=== PATIENT | male | born 1955 | race Caucasian/White ===

== ENCOUNTER 2018-05-25 11:07 | Outpatient (REF) | payer BC, SELFPAY ==
[2018-05-25 14:29] LABS: Anion Gap 9.7 mmol/L (3-11); BUN 20 mg/dL (7-18); CO2 27.3 mmol/L (21.0-32.0); CREATININE 0.94 mg/dL (0.70-1.30); Calcium 9.4 mg/dL (8.5-10.1); Chloride 104 mmol/L (98-107); Cholesterol 230 mg/dL (50-200); Glucose 108 mg/dL (70-100); HDL Cholesterol 60 mg/dL (40-60); LDL CHOLESTEROL 148 mg/dL (<100); Potassium 4.4 mmol/L (3.5-5.1); Sodium 141 mmol/L (136-145); Triglyceride 120 mg/dL (30-150)
[2018-05-28 13:48] LABS: Hepatitis C Ab w Rflx HCV PCR Negative (NEGAT)
== END 2018-05-25 11:27 ==
LOC: NCHCN 11:07
PROVIDERS: PCP Internal Medicine; Visit Provider Internal Medicine
DX: R20.2 Paresthesia of skin (principal); Z00.00 Encounter for general adult medical examination without abnormal findings; Z13.220 Encounter for screening for lipoid disorders; Z13.228 Encounter for screening for other metabolic disorders; Z11.59 Encounter for screening for other viral diseases
CPT/HCPCS: 80048; 80061; 83721; 86803

== ENCOUNTER 2018-06-01 00:47 | Outpatient (CLI) | payer BC, SELFPAY ==
[2018-06-01] MEDS: Gadoterate meglumine 20 ML VIAL 16 ML IVP (14:42)
--- NOTE | 2018-06-01 14:57 | DI.MRI_ITS ---
SYMPTOMS/DIAGNOSIS: PARESTHESIAS, R20.2, NUMBNESS, TINGLING LT ARM MRI OF THE BRAIN: Pre and post contrast examination was performed. There are no priors for comparison. There is normal signal in the brain parenchyma. There is a normal reeves/white matter differentiation. The ventricles are intact. The basilar cisterns are patent. No acute midline shift or mass effect is identified. The diffusion weighted images have a normal appearance. No intracranial hemorrhage is seen. Following contrast administration no enhancing masses are appreciated. The visualized paranasal sinuses are clear. The visualized orbits and retro-orbital soft tissues are unremarkable. The pituitary has a normal appearance. There is a normal flow void in the [place]. IMPRESSION: Negative MRI of the brain.
== END 2018-06-01 01:07 ==
PROVIDERS: PCP Internal Medicine; Visit Provider Internal Medicine
DX: R20.2 Paresthesia of skin (principal)
CPT/HCPCS: 70553

== ENCOUNTER 2018-06-12 00:27 | Outpatient (CLI) | payer BC, SELFPAY ==
--- NOTE | 2018-06-12 11:40 | DI.MRI_ITS ---
SYMPTOMS/DIAGNOSIS: PARESTHESIAS, R20.2, LEFT ARM AND FOOT NUMB, ? MS VERSUS TUMOR VERSUS PINCHED NERVE MRI OF THE CERVICAL SPINE: Routine noncontrast examination was performed. There are no priors for comparison. There is normal signal in the spinal cord. No evidence of tonsillar ectopia is seen. At C7-T1, there is no focal disc herniation, central spinal canal or neural foraminal stenosis. At C6-C7, there is mild prominence of the osteophyte-disc complex, but no focal disc herniation or central spinal canal stenosis. No significant neural foraminal stenosis is present. At C5-C6, there is mild disc desiccation. No central spinal canal stenosis is seen. No significant neural foraminal stenosis is present. At C4-C5, there is no focal disc herniation, central spinal canal or neural foraminal stenosis present. At C3-C4, there is no central spinal canal stenosis seen. There are hypertrophic changes of the uncovertebral joints and facets on the right, causing moderate narrowing of the neural foramen. There is no significant left neural foraminal stenosis. At C2-C3, there is no focal disc herniation or central spinal canal stenosis. There are mild degenerative changes seen at the left uncovertebral joint, causing mild narrowing of the neural foramen. The right neural foramen is widely patent. Apart from mild degenerative endplate signal changes, there is normal signal in the bone marrow. Note is made of small hemangiomata or fatty rests in C6 and the T1 vertebral bodies. IMPRESSION: 1. Multilevel degenerative changes in the cervical spine resulting in neural foraminal stenosis as described above. 2. Normal signal in the spinal cord.
== END 2018-06-12 00:47 ==
PROVIDERS: PCP Internal Medicine; Visit Provider Internal Medicine
DX: R20.2 Paresthesia of skin (principal); M25.78 Osteophyte, vertebrae; M48.02 Spinal stenosis, cervical region
CPT/HCPCS: 72141

== ENCOUNTER 2018-09-17 13:27 | Outpatient (CLI) | payer BC, SELFPAY ==
--- NOTE | 2018-09-17 13:10 | DI.RAD_ITS ---
SYMPTOM/DIAGNOSIS: INJURY, PAIN RIGHT SHOULDER: Three views. No acute fracture or dislocation is seen. The glenohumeral joint and acromioclavicular joint are both well maintained. The soft tissues are unremarkable. IMPRESSION: No acute fracture or dislocation.
== END 2018-09-17 13:47 ==
PROVIDERS: PCP Internal Medicine; Visit Provider Physician Assistant
DX: M25.511 Pain in right shoulder (principal); S49.91XA Unspecified injury of right shoulder and upper arm, initial encounter
CPT/HCPCS: 73030

== ENCOUNTER 2019-01-24 16:18 | Outpatient (REF) | payer BC, SELFPAY ==
[2019-01-24 22:00] LABS: Abs Immature Grans 0.03 k/cumm (0.0-0.09); Absolute Basophil Count 0.01 k/cumm (0.0-0.2); Absolute Eosinophil Count 0.11 k/cumm (0.0-0.7); Absolute Lymphocyte Count 2.47 k/cumm (1.2-3.4); Absolute Monocyte Count 0.55 k/cumm (0.11-0.7); Absolute Neutrophil Count 3.94 k/cumm (1.2-6.7); Basophils % 0.1; Eosinophils % 1.5; HCT 42.6 % (40.0-50.0); HGB 14.5 g/dL (13.5-17.5); Immature Grans % 0.4; Lymphocytes % 34.7; Mean Corpuscular Hemoglobin 32.2 pg (27.0-33.0); Mean Corpuscular Volume 94.5 fL (80-95); Mean Platelet Volume 12.4 fL (8.0-11.0); Monocytes % 7.7; Neutrophils % 55.6; Platelet Count 212 x1000/uL (130-400); RBC 4.51 m/cumm (4.50-6.00); RBC Distribution Width 12.7 % (11.8-14.1); White Blood Cell Count 7.11 k/cumm (4.4-10.8)
[2019-01-24 22:19] LABS: C-Reactive Protein 0.12 mg/dL (0.0-0.3)
[2019-01-24 22:45] LABS: ESR 5 MM/HR (1-20)
== END 2019-01-24 16:38 ==
LOC: NCHCN 16:18
PROVIDERS: PCP Internal Medicine; Visit Provider Internal Medicine
DX: R31.9 Hematuria, unspecified (principal); E27.8 Other specified disorders of adrenal gland; M25.50 Pain in unspecified joint
CPT/HCPCS: 85652; 85025; 86140

== ENCOUNTER 2019-02-08 01:27 | Outpatient (CLI) | payer BC, SELFPAY ==
--- NOTE | 2019-02-08 09:45 | DI.CT_ITS ---
SYMPTOM/DIAGNOSIS: HEMATURIA, R31.[address]: Renal colic CT was performed according to protocol. Comparison is made with 05/22/17. Lack of IV contrast does limit evaluation of the abdominal and pelvic organs. The visualized lung bases are clear. The patient is status post cholecystectomy. No biliary ductal dilatation is seen. The unenhanced visualized portions of the liver, spleen and pancreas are unremarkable as are the adrenal glands. The kidneys show no evidence of nephrolithiasis. There is a 4 mm. stone seen in the distal left ureter proximal to the ureterovesicular junction causing mild hydronephrosis. The urinary bladder is intact. The reproductive organs are unremarkable. There is diverticulosis of the colon but no evidence of acute diverticulitis. No findings to suggest bowel obstruction or inflammation. There is no evidence of an acute appendicitis. The abdominal aorta is of normal caliber. No significant abdominal or pelvic adenopathy, ascites or pneumoperitoneum is present. The patient has a right total hip replacement which causes some artifact in the pelvis. Degenerative changes are seen in the spine. IMPRESSION: 4 mm. distal left ureteral stone causing mild hydronephrosis.
== END 2019-02-08 01:47 ==
PROVIDERS: PCP Internal Medicine; Visit Provider Internal Medicine
DX: R31.9 Hematuria, unspecified (principal); Z90.49 Acquired absence of other specified parts of digestive tract; N20.0 Calculus of kidney; Z96.641 Presence of right artificial hip joint; N13.30 Unspecified hydronephrosis
CPT/HCPCS: 74176

== ENCOUNTER 2019-02-18 11:34 | Outpatient (REF) | payer BC, SELFPAY ==
[2019-02-18 13:55] LABS: Bilirubin Negative (Negative); Blood Large (Negative); Clarity Clear (Clear); Glucose Negative (Negative); Ketones Negative (Negative); Leukocyte Esterase Trace (Negative); Nitrite Negative (Negative); Urobilinogen 0.2 EU/dL (Up TO 0.2); pH 6.5 (5-8)
[2019-02-18 14:07] LABS: Bacteria Few HPF (Negative); Casts Negative LPF (Negative); Crystals Negative HPF (Negative); Epithelial Cells Few HPF (Negative); Mucus Negative (Negative)
[2019-02-18 14:08] LABS: C & S Indicated? Yes
== END 2019-02-18 11:54 ==
LOC: NCHCO 11:34
PROVIDERS: PCP Internal Medicine; Visit Provider Internal Medicine
DX: R30.0 Dysuria (principal)
CPT/HCPCS: 81003; 81015; 87086

== ENCOUNTER 2019-03-26 01:09 | Outpatient (CLI) | payer BC, SELFPAY ==
--- NOTE | 2019-03-26 15:38 | DI.US_ITS ---
SYMPTOM/DIAGNOSIS: BPH WITH URINARY OBSTRUCTION, N40.1 RENAL ULTRASOUND: Routine examination. Comparison CT scan is 02/08/19. The right kidney measures 11.1 cm. long. No renal masses or obstruction is seen. There is an echogenic focus seen in the mid pole of the right kidney. No significant shadowing is seen. This may represent a vascular calcification or possible non obstructing stone. There is normal blood flow to the right kidney. The left kidney measures 11.5 cm. long. There is mild prominence of the left collecting system, unchanged compared to the CT scan from 02/08/19. No solid renal mass or calculus is seen. The prevoid urinary bladder volume is 86 cc's. Both ureteral jets were seen. No intraluminal mass is present. Postvoid urinary bladder volume is 7 cc's. The prostate gland is enlarged measuring 75 cc's. IMPRESSION: 1. Mild prominence of the left renal collecting system, unchanged compared to the CT from 02/08/19. 2. Tiny vascular calcification versus small non obstructing stone in the right kidney. 3. Prostatic enlargement.
== END 2019-03-26 01:29 ==
PROVIDERS: PCP Internal Medicine; Visit Provider Urology
DX: N39.0 Urinary tract infection, site not specified (principal); N40.1 Benign prostatic hyperplasia with lower urinary tract symptoms; N28.89 Other specified disorders of kidney and ureter
CPT/HCPCS: 76770

== ENCOUNTER 2019-04-10 00:45 | Outpatient (CLI) | payer BC, SELFPAY ==
--- NOTE | 2019-04-10 09:12 | DI.CT_ITS ---
SYMPTOM/DIAGNOSIS: CALCULUS OF KIDNEY, N20.[address]: Comparison is made with 02/08/19. There is increased left hydronephrosis compared with the previous exam, now moderate. The ureter is again dilated. The stone now lies in the left ureterovesical junction. The stone measures 8 by 6 mm. No additional urinary tract calculi are seen. The prostate is enlarged. There is mild bladder wall thickening. There is a right hip prosthesis creating artifact in the pelvis. There is sigmoid diverticulosis without evidence of diverticulitis. The lung bases are clear. The heart size is normal. The patient is status post cholecystectomy. The liver, spleen, pancreas and adrenals are unremarkable. IMPRESSION: Increasing left hydronephrosis, now moderate secondary to an 8 mm. stone now located at the ureterovesical junction.
== END 2019-04-10 01:05 ==
PROVIDERS: PCP Internal Medicine; Visit Provider Urology
DX: N20.0 Calculus of kidney (principal); N13.30 Unspecified hydronephrosis; Z90.49 Acquired absence of other specified parts of digestive tract
CPT/HCPCS: 74176

== ENCOUNTER 2019-05-13 00:55 | Outpatient (CLI) | payer BC, SELFPAY ==
--- NOTE | 2019-05-13 15:29 | DI.US_ITS ---
EXAM: US RENAL CLINICAL HISTORY: CALCIUMUROLITHIASIS, N20.9 TECHNIQUE: Ultrasound performed using standard protocol. COMPARISON: US renal from 03/26/2019 FINDINGS: The kidneys are normal in size and shape. No evidence of hydronephrosis, nephrolithiasis, or renal m ass. Urinary bladder is unremarkable in appearance. Pre and postvoid urinary bladder volume measure ments are 490 cc and 87 cc respectively. IMPRESSION: Unremarkable examination except for increased post void volume of urinary bladder.
== END 2019-05-13 01:15 ==
PROVIDERS: PCP Internal Medicine; Visit Provider Urology
DX: N20.9 Urinary calculus, unspecified (principal); R39.89 Other symptoms and signs involving the genitourinary system
CPT/HCPCS: 76770

== ENCOUNTER 2019-06-03 01:27 | Outpatient (CLI) | payer BC, SELFPAY ==
--- NOTE | 2019-06-03 09:56 | DI.MRI_ITS ---
EXAM: MR UPPER JOINT RT WO CLINICAL HISTORY: persistent R shoulder pain and weakness, M25.511,INJURY SHOVELING SNOW TECHNIQUE: Multiplanar multisequence MRI was performed. COMPARISON: XR shoulder RT complete 2+V from 09/17/2018 FINDINGS: There are mild degenerative changes of the AC joint. There is a minimal amount of fluid in the sub acromial subdeltoid bursa. There is a small amount of fluid in the subcoracoid bursa and a small am ount of fluid within the glenohumeral joint. There is a partial tear of the anterior aspect of the s upraspinatus tendon distally. There is no significant muscle atrophy. There is mild edema and thick ening in the distal muscle and tendon. The subscapularis and teres minor tendons appear intact. The long head of the biceps tendon is not well seen on any sequence. There is an apparent tear of the i nferior and anterior aspects of the glenoid labrum. IMPRESSION: Partial tear of the supraspinatus tendon anteriorly. Infraspinatus tendinosis. Tears of the anterior and inferior glenoid labrum. The biceps tendon is not well seen and may be completely or partially torn.
== END 2019-06-03 01:47 ==
PROVIDERS: PCP Internal Medicine; Visit Provider Student in an Organized Health Care Education/Training Program
DX: M25.511 Pain in right shoulder (principal); M25.811 Other specified joint disorders, right shoulder; M75.81 Other shoulder lesions, right shoulder; M75.101 Unspecified rotator cuff tear or rupture of right shoulder, not specified as traumatic
CPT/HCPCS: 73221

== ENCOUNTER 2020-08-31 09:40 | Outpatient (CLI) | payer MEDICARE, BC, SELFPAY ==
--- NOTE | 2020-08-31 08:15 | DI.RAD_ITS ---
EXAM: XR HAND LT COMPLETE CLINICAL HISTORY: left ring finger mass. TECHNIQUE: 2D digital imaging was performed. COMPARISON: CR ARTHITIS SERIES-KAYCE HAND WRIST from 04/07/2011 FINDINGS: BONES: There is a mildly displaced fracture of the posterior aspect of the base of the distal phalanx of the left ring finger. No other fracture or dislocation is seen. The acuity of this fracture is indeterminate. Please correlate with the patient's clinical history. No bony destructive lesion is seen. JOINTS: Since the prior examination from 04/07/2011 there has been significant progression of the arthr itic changes of the left hand. 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 Th ere is involvement of the 1st CMC joint, the MCP joints and the interphalangeal joints of the fingers . SOFT TISSUE: There is diffuse soft tissue swelling of the hands. No radiopaque foreign bodies or eric cifications are seen in the soft tissues. There is focal soft tissue swelling at the lateral and eren araseli aspect of the middle phalanx of the left ring finger. No associated bony mass is seen. IMPRESSION: 1. Mildly displaced fracture involving the posterior aspect of the base of the distal phalanx of the left ring finger. 2. Focal soft tissue swelling and adjacent to the middle phalanx of the left ring finger. No underly ing osseous abnormalities identified. This may represent a soft tissue mass. This may also be relat ed to the avulsed fracture of the adjacent distal phalanx. MRI may be considered for further evaluat ion. 3. Significant progression of the arthritic changes of the left hand since 2010. There has been inte rval ankylosis of the PIP joint of the left index finger. DATA REPOSITORY: RADIATION DOSE DELIVERED:
== END 2020-08-31 10:00 ==
PROVIDERS: PCP Internal Medicine; Referring Provider Internal Medicine; Visit Provider Student in an Organized Health Care Education/Training Program
DX: S62.635A Displaced fracture of distal phalanx of left ring finger, initial encounter for closed fracture (principal); M24.642 Ankylosis, left hand; M79.89 Other specified soft tissue disorders; R22.30 Localized swelling, mass and lump, unspecified upper limb; M19.042 Primary osteoarthritis, left hand; M67.442 Ganglion, left hand
CPT/HCPCS: 99213; 73130

== ENCOUNTER 2020-11-09 11:25 | Outpatient (REF) | payer MEDICARE, BC, SELFPAY ==
[2020-11-10 12:03] LABS: COVID-19 RT-PCR UVMMC Result Negative (Negative)
== END 2020-11-09 11:26 | disposition home or self-care (01) ==
LOC: NCHCN 11:25
PROVIDERS: PCP Internal Medicine; Visit Provider Internal Medicine
DX: Z20.822 Contact with and (suspected) exposure to COVID-19 (principal)
CPT/HCPCS: U0003; U0005

== ENCOUNTER 2021-06-04 16:34 | Emergency (ER) | payer MEDICARE, BC, SELFPAY ==
--- NOTE | 2021-06-04 16:30 | RT.EKG_ITS ---
APPROVED REPORT Exam: Resting ECG Reason for Exam: short of breath Patient Location: E HR:66 bpm ECG Measurements Heart Rate 66 AXIS FL 145 P 40 QRSd 89 QRS 11 QT 425 T 31 QTc 447 Conclusion Sinus rhythm...normal P axis, V-rate 60- 99
[2021-06-04 16:38] VITALS: BP 153/118; PULSE 69; RESP 18; TEMP 36.4; O2SAT 100
[2021-06-04 16:41] VITALS: RESP 22
--- NOTE | 2021-06-04 16:50 | ED.GENADUL_ITS ---
Discharge Plan Disposition Patient Disposition: AGAINST MEDICAL ADVICE Condition: Stable Discharge Details Clinical Impression: Shortness of breath, Anxiety Primary Care Provider: Skip Reilly ED Provider: Lane Grewal Home Meds and New Rx's Prescriptions: Continued tamsulosin [Flomax] 0.4 mg capsule 0.4 mg PO DAILY RF: 0 CBD 30 mg PO RF: 0 METAMUCIL 283 GM powder 2 tbs PO DAILY RF: 0 ibuprofen 200 MG capsule 600 mg PO Q8H PRN RF: 0 naproxen 500 mg tablet 500 mg PO DAILY Qty: 90 RF: 3 Discharge Instructions Instructions: Anxiety (ED) Additional Instructions: follow up with your primary care provider this week your blood work showed no concerning findings and you did not want to stay for a repeat blood test if you feel more ill, have worsening shortness of breath or pain return to the emergency department Medical Decision Making 65 yo male with hx of anxiety who comes in with complaint of shortness of breath and feeling anxious. He states this started acutely around 330pm while on a small plane and was a bumpy ride causing him to feel anxious. He denies chest pain, fevers, chills. He does appear anxious on exam. He is hyperventilating and is restless. He has stable vitals, clear lungs, normal heart sounds, no leg swelling or jvd. I do suspect panic attack. Will obtain ecg and evaluate for nstemi, anemia and electrolyte abnormalities and treat his anxiety with ativan and reassess. No hypoxia or tachycardia so doubt PE. labs unremarkable. Remains stable and feels much better. I discussed with pt and recommended repeat troponin and ecg. He has capacity to make his own decisions and understands the risks of leaving if he did have an nstemi including and permanent disability and is willing to accept these risks. He is leaving against my medical advise. He will follow up with his pcp and understands he can return at any time if he changes his mind Differential Diagnosis Differential Diagnosis: anxiety, anemia, nstemi Lab Data Lab results reviewed: Yes I reviewed the patient's lab results. ECG Data Attestation: I personally reviewed and interpreted this ECG (s) as follows: Prior ECG tracings: not available for review Interpretation: sinus rhythm, rate of 66, no acute st t wave ischemic findings HPI General Mode of arrival: wheelchair . Date/Time Provider Initiated Documentation: 06/04/21 16:35 . Limitations to Documentation: no limitations . Information obtained by: patient . History of Present Illness 65 year old M presents to the emergency department with the chief complaint of anxious, described as moderate, Patient started experiencing this hour(s) (1) and it has been constant. No relieving factors improve symptom(s), No exacerbating factors reported . Patient notes shortness of breath. Patient did receive the following treatments prior to arrival, none Related Data Home Medications Medication Instructions Recorded Confirmed Metamucil 2 tbs PO DAILY 10/23/12 07/29/19 ibuprofen 600 mg PO Q8H PRN 02/06/15 06/04/21 tamsulosin 0.4 mg capsule 0.4 mg PO DAILY 05/24/19 06/04/21 CBD PO 07/29/19 07/29/19 naproxen 500 mg tablet 500 mg PO DAILY #90 tab 12/18/20 06/04/21 Previous Rx's Medication Instructions Recorded naproxen 500 mg tablet 500 mg PO DAILY #90 tab 12/18/20 Allergies Allergy/AdvReac Type Severity Reaction Status Date / Time No Known Allergies Allergy Verified 06/04/21 16:41 General Stated Complaint: Anxiety DESEAN: 3 Review of Systems All systems reviewed & are unremarkable except as noted in HPI and below Constitutional Constitutional: Denies chills, Denies fever(s) and Denies weakness ENT Ears, Nose, Mouth, and Throat: Denies change in voice Respiratory Respiratory: Denies cough Gastrointestinal Gastrointestinal: Denies abdominal pain, Denies nausea and Denies vomiting Neurologic Neurologic: Denies weakness [facility] Medical History (Updated 06/04/21 @ 18:[address]rewal MD) Arthritis Arthritis of left hand Ganglion cyst of finger of left hand Left ring finger Impaired wound healing Osteoarthritis Surgical History Appendectomy (~1989) Cholecystectomy (~2006) Total replacement of hip (~2009) RIGHT Vasectomy (~1987) Social History Smoking/Tobacco Use Status: Former Tobacco Use Smoking risk assessment performed?: Yes Alcohol Intake: current Alcohol Intake frequency: 0-2 drinks per day Drug use: Daily Substance use type: marijuana Do you feel safe at home: Yes Do you feel safe in your relationship?: Yes Exam Const General: no acute distress Orientation: alert HENMT Head: normal to inspection Ears: external ears normal General nose exam: external nose normal Mouth: moist mucous membranes Eyes General: appearance normal, both eyes and all related structures Neck Neck: normal visual inspection Resp Effort & Inspection: normal respiratory effort and able to speak in complete sentences Cardio Rate: regular rate GI Palpation: soft and nontender Skin General skin exam: no rashes or lesions noted Neuro General: patient alert and patient oriented x3 Extrem General: normal to inspection Psych Mental Status: mental status grossly normal Course Vital Signs Vital signs: Vital Signs Temperature 36.4 C L 06/04/21 16:38 Pulse 69 06/04/21 16:38 Respiratory Rate 18 06/04/21 16:38 Blood Pressure 153/118 H 06/04/21 16:38 Pulse Oximetry 100 06/04/21 16:38 Temperature 36.4 C L 06/04/21 16:38 Temperature Source Temporal Artery Scan 06/04/21 16:38 Pulse 69 06/04/21 16:38 Respiratory Rate 22 06/04/21 16:41 Respiratory Effort 06/04/21 16:41 Respiratory Depth Normal 06/04/21 16:41 Respiratory Pattern Normal 06/04/21 16:41 Blood Pressure 153/118 H 06/04/21 16:38 Pulse Oximetry 100 06/04/21 16:38 Oxygen Delivery Method Room Air 06/04/21 16:38 Oxygen Flow Rate 0 06/04/21 16:38 Pain Level 7 06/04/21 16:38
[2021-06-04 16:58] LABS: Source Nasal/Nares
[2021-06-04] MEDS: LORazepam 2 MG/ML VIAL 1 MG IVP (17:01)
[2021-06-04 17:04] LABS: Abs Immature Grans 0.05 10^3/uL (0.0-0.06); Absolute Basophil Count 0.04 10^3/uL (0.0-0.2); Absolute Eosinophil Count 0.07 10^3/uL (0.0-0.7); Absolute Lymphocyte Count 2.51 10^3/uL (1.2-3.4); Absolute Monocyte Count 0.55 10^3/uL (0.1-0.8); Absolute Neutrophil Count 4.48 10^3/uL (1.2-6.7); Basophils % 0.5; Eosinophils % 0.9; HCT 48.5 % (40.0-50.0); HGB 16.9 g/dL (13.5-17.5); Immature Grans % 0.6; Lymphocytes % 32.6; MCHC 34.8 % (32.0-36.0); MCV 91.9 fL (80-95); MPV 10.6 fL (8.0-11.0); Monocytes % 7.1; Neutrophils % 58.3; Nucleated RBC 0 %; Platelet Count 220 10^3/uL (130-400); RBC 5.28 10^6/uL (4.36-5.78); RDW-SD 40.9 fL
[2021-06-04 17:18] LABS: pCO2 (Venous) 27 mmHg (41-51)
[2021-06-04 17:19] LABS: BE (Venous) 5 mmol/L (-2-3); HCO3 (Venous) 26 mmol/L (23-28); TCO2 (Venous) 27 mmol/l (24-29); pO2 (Venous) 28 mmHg
[2021-06-04 17:20] LABS: O2 Sat (Venous) 66 %
[2021-06-04 17:56] LABS: COVID-19 PCR Negative (Negative)
[2021-06-04 18:08] LABS: ALT 36 U/L (16-63); AST 15 U/L (15-37); Albumin 4.3 g/dL (3.4-5.0); Alkaline Phosphatase 59 U/L (46-116); Anion Gap 11.6 mmol/L (3-11); BUN 15 mg/dL (7-18); Bilirubin, Total 0.7 mg/dL (0.2-1.0); CO2 25.4 mmol/L (21.0-32.0); CREATININE 0.8 mg/dL (0.70-1.30); Chloride 101 mmol/L (98-107); Glucose 122 mg/dL (74-106); Potassium 3.2 mmol/L (3.5-5.1); Sodium 138 mmol/L (136-145); Total Protein 7.4 g/dL (6.4-8.2)
[2021-06-04 18:18] LABS: NT-proBNP 114 pg/mL (<300); TSH (W/Ref FT4) 2.86 uIU/mL (0.36-3.74)
[2021-06-04 18:22] LABS: Troponin I < 0.05 ng/mL (<0.06)
[2021-06-04 19:18] VITALS: BP 140/68; PULSE 69; RESP 22; TEMP 36.4; O2SAT 100
== END 2021-06-04 19:19 | disposition left against medical advice (07) ==
PROVIDERS: Emergency Provider Emergency Medicine; PCP Internal Medicine
DX: F41.9 Anxiety disorder, unspecified (principal); R06.02 Shortness of breath; Z53.29 Procedure and treatment not carried out because of patient's decision for other reasons
CPT/HCPCS: 80053; 82805; 87635; 93005; 96374; 99284; 83735; 83880; 84443; 84484; 85025; 93010; 99283; J2060

== ENCOUNTER 2021-10-04 10:04 | Outpatient (REF) | payer MEDICARE, SELFPAY ==
[2021-10-04 16:07] LABS: ALT 38 U/L (16-63); AST 15 U/L (15-37); Albumin 4.4 g/dL (3.4-5.0); Alkaline Phosphatase 66 U/L (46-116); Anion Gap 10.6 mmol/L (3-11); BUN 14 mg/dL (7-18); Bilirubin, Total 0.4 mg/dL (0.2-1.0); CO2 25.4 mmol/L (21.0-32.0); CREATININE 0.9 mg/dL (0.70-1.30); Calcium 9.1 mg/dL (8.5-10.1); Calculated LDL 146 mg/dL (<100); Chloride 102 mmol/L (98-107); Cholesterol 222 mg/dL (<200); Glucose 104 mg/dL (74-106); HDL Cholesterol 58 mg/dL (40-60); Potassium 4.5 mmol/L (3.5-5.1); Sodium 138 mmol/L (136-145); Total Protein 7.4 g/dL (6.4-8.2); Triglyceride 90 mg/dL (<150)
[2021-10-04 22:59] LABS: PSA, Screening 5.4 ng/mL (0.0-4.5)
== END 2021-10-04 10:05 | disposition home or self-care (01) ==
LOC: NCHCN 10:04
PROVIDERS: PCP Internal Medicine; Visit Provider Family Medicine
DX: Z00.00 Encounter for general adult medical examination without abnormal findings (principal); F41.9 Anxiety disorder, unspecified; Z12.5 Encounter for screening for malignant neoplasm of prostate
CPT/HCPCS: 80053; 80061; 84153

== ENCOUNTER 2023-01-24 09:38 | Outpatient (REF) | payer MEDICARE, SELFPAY ==
[2023-01-24 22:10] LABS: Anion Gap 10.5 mmol/L (3-11); BUN 12 mg/dL (7-18); CO2 24.5 mmol/L (21.0-32.0); CREATININE 0.9 mg/dL (0.70-1.30); Calcium 9.1 mg/dL (8.5-10.1); Chloride 102 mmol/L (98-107); Estimated GFR 93.61 (mL/min/1.73m2); Glucose 106 mg/dL (74-106); Potassium 4.2 mmol/L (3.5-5.1); Sodium 137 mmol/L (136-145)
[2023-01-25 18:49] LABS: PSA, Screening 5.9 ng/mL (<=4.5)
== END 2023-01-24 09:39 | disposition home or self-care (01) ==
LOC: NCHCN 09:38
PROVIDERS: PCP Internal Medicine; Visit Provider Internal Medicine
DX: Z12.5 Encounter for screening for malignant neoplasm of prostate (principal); M19.041 Primary osteoarthritis, right hand; F41.8 Other specified anxiety disorders; N40.1 Benign prostatic hyperplasia with lower urinary tract symptoms
CPT/HCPCS: 80048; 84153

== ENCOUNTER → 2023-05-08 02:09 | Outpatient (CLI) | payer MEDICARE, SELFPAY ==
--- NOTE | 2023-05-08 07:15 | DI.RAD_ITS ---
Exam(s) XR ANKLE LT COMPLETE EXAM: XR ANKLE LT COMPLETE CLINICAL HISTORY: Pain in left foot,ankle,m25.572 TECHNIQUE: 2D digital imaging was performed. Three views. COMPARISON: No exams were available for comparison FINDINGS: BONES: No acute fracture is present. No bony destructive lesion is seen. Spurring at tip of medial malleolus. JOINTS:The ankle mortise is normally aligned. Tibiotalar joint space is maintained severe degenerat deepak changes tarsal metatarsal joints. SOFT TISSUE: Normal. IMPRESSION: Severe degenerative changes tarsal metatarsal joints. DATA REPOSITORY: RADIATION DOSE DELIVERED:
--- NOTE | 2023-05-08 07:15 | DI.RAD_ITS ---
Exam(s) XR FOOT LT COMPLETE EXAM: XR FOOT LT COMPLETE CLINICAL HISTORY: Pain in left foot,m25.572. TECHNIQUE: 2D digital imaging was performed. Three views. COMPARISON: No exams were available for comparison FINDINGS: BONES: No acute fracture is present. No bony destructive lesion is seen. JOINTS: No dislocation present. Fusion at the distal interphalangeal joint of the 4th toe. 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 Degenerative changes interphalangeal durga ints of the 2nd and 3rd toes. Mild degenerative changes at the 1st MTP joint. Prominent degenerativ e changes at the tarsal metatarsal joints with dorsal spurring. SOFT TISSUE: Normal. IMPRESSION: Degenerative changes are greatest at the tarsal metatarsal joints. DATA REPOSITORY: RADIATION DOSE DELIVERED:
--- NOTE | 2023-05-08 07:15 | DI.RAD_ITS ---
Exam(s) XR FOOT RT COMPLETE EXAM: XR FOOT RT COMPLETE CLINICAL HISTORY: Pain in right foot,m79.671. TECHNIQUE: 2D digital imaging was performed. Three views. COMPARISON: CR XR FOOT LT COMPLETE from 05/08/2023 FINDINGS: BONES: No acute fracture is present. No bony destructive lesion is seen. Tiny enthesophyte at [place] es insertion. JOINTS: No dislocation present. Severe degenerative changes 1st MTP joint. Mild hallux valgus. Deg enerative changes also present of the interphalangeal joints of the toes. 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 Degenerative changes also present the 2nd and 3rd tarsal metatarsal joints. Plantar arch is maintained. SOFT TISSUE: Normal. IMPRESSION: Degenerative changes, greatest at the 1st MTP joint. DATA REPOSITORY: RADIATION DOSE DELIVERED:
== END ==
PROVIDERS: PCP Internal Medicine; Visit Provider Podiatrist
DX: M19.072 Primary osteoarthritis, left ankle and foot; M19.071 Primary osteoarthritis, right ankle and foot
CPT/HCPCS: 73610; 73630

== ENCOUNTER → 2023-05-31 08:42 | Outpatient (BNVA) | payer MEDICARE, SELFPAY | PROVIDERS: PCP Internal Medicine; Referring Provider Internal Medicine; Visit Provider Podiatrist | DX: B35.1 Tinea unguium (principal); M79.671 Pain in right foot; M25.572 Pain in left ankle and joints of left foot; M19.071 Primary osteoarthritis, right ankle and foot; M19.072 Primary osteoarthritis, left ankle and foot; G62.9 Polyneuropathy, unspecified; B07.0 Plantar wart; B35.3 Tinea pedis | CPT/HCPCS: 17110; 99213 ==

== ENCOUNTER → 2023-06-28 08:14 | Outpatient (BNVA) | payer MEDICARE, SELFPAY | PROVIDERS: PCP Internal Medicine; Referring Provider Internal Medicine; Visit Provider Podiatrist | DX: M79.671 Pain in right foot (principal); M25.572 Pain in left ankle and joints of left foot; M19.072 Primary osteoarthritis, left ankle and foot; G62.9 Polyneuropathy, unspecified; B07.0 Plantar wart; B35.3 Tinea pedis | CPT/HCPCS: 17110 ==

== ENCOUNTER → 2023-08-03 07:58 | Outpatient (BNVA) | payer MEDICARE, SELFPAY | PROVIDERS: PCP Internal Medicine; Referring Provider Internal Medicine; Visit Provider Podiatrist | DX: B07.0 Plantar wart (principal); M79.671 Pain in right foot | CPT/HCPCS: 17110 ==

== ENCOUNTER → 2023-08-17 09:14 | Outpatient (BNVA) | payer MEDICARE, SELFPAY | PROVIDERS: PCP Internal Medicine; Referring Provider Internal Medicine; Visit Provider Physical Therapy Assistant | DX: Z12.11 Encounter for screening for malignant neoplasm of colon (principal); Z86.010 Personal history of colon polyps ==

== ENCOUNTER 2023-08-21 10:48 | Day surgery (SDC) | payer MEDICARE, SELFPAY ==
--- NOTE | 2023-08-20 15:05 | W.PM.DSUDISC ---
Date of service: 08/21/23 Time of Service: 13:25 Discharge Plan Disposition Patient Disposition: Home Condition: Good Discharge Details Reason For Visit: screening colonoscop Attending Provider: Andres Salguero Primary Care Provider: Skip Reilly Home Meds and New Rx's Prescriptions: Continued meloxicam 7.5 mg tablet 7.5 mg PO DAILY Lotrimin AF 2 % aerosol,spray 1 spray topical DAILY tamsulosin [Flomax] 0.4 mg capsule 0.4 mg PO DAILY B-complex with vitamin C Capsule 1 cap PO DAILY multivitamin [Multiple Vitamins] Tablet 1 tab PO DAILY omega-3 fatty acids 1,000 mg capsule 1,000 mg PO DAILY citalopram 10 mg tablet 10 mg PO DAILY ketoconazole 2 % cream 1 applic topical DAILY 90 Days Qty: 60 3RF Rx Instructions: Apply to toenails once daily METAMUCIL 283 GM powder 2 tbs PO DAILY ibuprofen 200 MG capsule 600 mg PO Q8H PRN Discontinued polyethylene glycol 3350 17 gram/dose powder 238 g PO ONCE Qty: 238 0RF Rx Instructions: take per colonoscopy instructions bisacodyl [Dulcolax (bisacodyl)] 5 mg tablet,delayed release (DR/EC) 5 mg PO ONCE Qty: 4 0RF Rx Instructions: take per colonoscopy instructions Discharge Instructions Instructions: Diverticulosis (GEN), Colorectal Polyps (GEN), Diverticulosis Diet (GEN) Additional Instructions: Holland, we were able to complete your colonoscopy today without any difficulty. I did find 2 polyps. Both were quite small, and I remove them both without any issues. Incidentally, he also have some diverticulosis. Diverticula are weak spots in the colon wall that typically accumulate as we get older. I have attached a little bit of information here regarding both polyps as well as diverticulosis. It would take a week or 2 for me to get the results of the polyp report, but once I have those, I will be in touch with my recommendations for your next colonoscopy. If you have any questions in the meantime, please do not hesitate to call with any point. 1. If tolerated, consume a soft, low fiber diet for 1-2 days. 2[address] Do not drive, drink alcohol, operate machinery, make critical decisions, or do activities that require coordination or balance for 24 hours. 3. Because air was put into your colon during the procedure, expelling air from your rectum (passing gas or farting) is normal. 4. You may not have a bowel movement for 1-3 days because of the colonoscopy prep. This is normal. 5. Go directly to the emergency room if you notice any of the following: Develop chills (warm to touch), or if you have a thermometer and your temperature is above 101 Difficulty breathing or difficultly swallowing Persistent vomiting Severe abdominal pain, other than gas cramps Severe chest pain Black, tarry stools Any bleeding ? exceeding one tablespoon 6. Call your physician if the site where your intravenous was started becomes red, swollen, painful, and warm to touch. 7. Your physician has reviewed your pre-procedure medications. Please continue to take those medications as previously ordered. You will be given specific information/education regarding any changes to your medications before leaving. Activity:: Activity as Tolerated Diet:: As Tolerated Discharge Orders Discharge Orders: Discharge Order (Routine); Ordered 08/20/23 Ordered By: Andres Salguero DS: Diagnosis Discharge Diagnosis (1) Screen for colon cancer: Status: Acute Asessment and Plan: Follow-up on polypectomy results
--- NOTE | 2023-08-20 15:07 | COLE_ITS ---
Date of service: 08/21/23 Time of Service: 13:29 Colonoscopy Report Date of procedure: 08/21/23 Pre-op diagnosis general: screening colonoscopy Post-op diagnosis procedure note: other (Diverticulosis, rectal polyps) Procedure: Colonoscopy with polypectomy Surgeon: Andres Salguero Anesthesia Type: General:No Airway Estimated blood loss (mL): 5 Pathology: other (0.25 cm rectal polyp, 0.25 cm polyp at 20 cm) Complications: None Disposition: same day Indications: Holland is a 68 year old man who needs his next screening colonoscopy Prep: Miralax/Dulcolax Procedure Start Time: 12:55 Procedure End Time: 13:18 Retraction Time: 18 Findings: Sigmoid diverticulosis, rectal polyp, polyp at 20 cm Procedure Description: After the induction of monitored anesthetic care, and with the patient in left lateral decubitus position, I began by performing an external anorectal exam.? Perineum and skin were normal, as was the anal verge.? There was no evidence of external hemorrhoids.? Next, I performed a digital rectal exam.? I did not appr eciate any abnormal findings.? Next, I advanced a colonoscope into the rectal vault.? I performed retroflexion.? This appeared normal.? Using insufflation, I then advanced the colonoscope beyond the rectal folds and into the sigmoid colon before advancing towards the cecum.? There was some sigmoid diverticulosis.? The scope was noted to be in the cecum by identification of the ileocecal valve and appendiceal orifice.? I then began withdrawing the colonoscope using repeated irrigation as necessary for full evaluation of the colonic mucosa. ?Once the scope was withdrawn to the level of the rectum, great care was taken to examine portions of the rectal folds.? Around 20 cm from the anal verge was a 0.25 cm flat polyp. I removed this with cold forceps. Just a few centimeters below that within the upper portion of the rectal vault was another polyp. This was a little more pedunculated. This was also about 0.25 cm, and I removed this with cold forceps as well. There was minimal bleeding here. Finally, the scope was withdrawn and the patient was brought to the same-day surgery recovery unit as the anesthetic wore off. ?The findings and instructions were shared with the patient prior to discharge. [place] Bowel Prep [place] Bowel Prep Right Colon: 3 Left Colon: 3 Transverse Colon: 3 Total Score: 9
[2023-08-21 11:12] VITALS: BP 125/81; PULSE 79; RESP 16; TEMP 36.5; O2SAT 96
[2023-08-21] MEDS: Lactated Ringers 1,000 ML 80 ML IV (11:16)
--- NOTE | 2023-08-21 11:44 | ANES.PREOP_ITS ---
General Info Date of Service Date Performed: 08/21/23 Height: 5 ft 10 in Weight: 82.554 kg Body Mass Index (BMI): 26.1 Surgical Procedure: Operation Date: 08/21/23 12:50 Proposed Procedure Side Surgeon romeo Salguero MD Meds Allergies and Home Medications Allergies Allergy/AdvReac Type Severity Reaction Status Date / Time No Known Allergies Allergy Verified 08/21/23 10:56 Home Medication Medication Instructions Recorded Metamucil 2 tbs PO DAILY 10/23/12 ibuprofen 200 mg capsule 600 mg PO Q8H PRN 02/06/15 tamsulosin 0.4 mg capsule (Flomax) 0.4 mg PO DAILY 05/24/19 meloxicam 7.5 mg tablet 7.5 mg PO DAILY 05/02/23 miconazole nitrate 2 % topical 1 spray topical DAILY 05/02/23 spray (Lotrimin AF) citalopram 10 mg tablet 10 mg PO DAILY 05/31/23 ketoconazole 2 % topical cream 1 applic topical DAILY 3 months 05/31/23 #60 grams B-complex with vitamin C 1 cap PO DAILY 08/17/23 multivitamin (Multiple Vitamins 1 tab PO DAILY 08/17/23 tablet) omega-3 fatty acids 1,000 mg 1,000 mg PO DAILY 08/17/23 capsule Current Visit Medications: Current Medications Generic Name Dose Route Start Last Admin Trade Name Freq PRN Reason Stop Dose Admin Hyoscyamine Sulfate 0.125 mg 08/20/23 15:08 Hyoscyamine 0.125 Mg Sl/Oral/Chew SL 09/19/23 15:07 DIRECTED PRN Ringer's Solution 1,000 mls @ 80 mls/hr 08/21/23 06:00 08/21/23 11:16 IV 08/21/23 23:59 80 mls/hr INFUSION UJAN Administration IV Miscellaneous Supplies 1 each 08/21/23 06:00 Iv Access IV 08/21/23 23:59 DIRECTED JUAN Ondansetron HCl 4 mg 08/20/23 15:08 Ondansetron 4 Mg/2 Ml Vial IVP 09/19/23 15:07 Q4H PRN PRN Nausea / Vomiting Sodium Chloride 0 ml 08/21/23 06:00 Normal Saline Flush 10 Ml Syr IV 08/21/23 23:59 PRN PRN Sodium Chloride 0 ml 08/21/23 06:00 Normal Saline 10 Ml Vial IJ 08/21/23 23:59 DIRECTED PRN Sterile Water 0 ml 08/21/23 06:00 Water,Injection,Sterile 10 Ml Vial IJ 08/21/23 23:59 DIRECTED PRN PFSH Active Problems Active Problems: Problem Status Onset Code Screen for colon cancer Z12.11 Tinea pedis B35.3 Plantar verruca B07.0 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 Degenerative joint disease, right, foot M19.071 Neuropathy G62.9 Pain in left ankle M25.572 Pain in right foot M79.671 Pain in joint, foot, left M25.572 Anxiety F41.9 Shortness of breath R06.02 Arthritis of left hand M19.042 Lumbar radiculopathy, acute M54.16 Right rotator cuff tear M75.101 Biceps tendinitis of right shoulder M75.21 Right rotator cuff tendonitis M75.81 Medical History Medical History Adrenal nodule Kidney stones BPH w urinary obs/LUTS Osteoarthritis Arthritis Impaired wound healing Surgical History Surgical History Vasectomy (~1987) Total replacement of hip (~2009) RIGHT Cholecystectomy (~2006) Appendectomy (~1989) Tobacco Smoking/Tobacco Use Status: Former Tobacco Use Alcohol Alcohol Intake: current Alcohol intake frequency: 0-2 drinks per day Substance Use Substance use: Rarely Substance use type: marijuana Details: 1 week last dose Vital Signs and Lab Results Vital Signs Most Recent Vital Signs in EMR: Most Recent Vital Signs Temp Pulse Resp BP Pulse Ox 36.5 C 79 16 125/81 96 08/21/23 11:12 08/21/23 11:12 08/21/23 11:12 08/21/23 11:12 08/21/23 11:12 Lab Results Blood Type / Crossmatch: No Data to Display Complete Blood Count: No Data to Display Complete Metabolic Panel: No Data to Display Liver Function Panel: No Data to Display Coagulation Panel: No Data to Display Cardiac Panel: No Data to Display Arterial Blood Gas: No Data to Display Venous Blood Gas: No Data to Display Pancreas Panel: No Data to Display Thyroid Panel: No Data to Display Infectious Disease: No Data to Display Blood Cultures: No Data to Display Toxicology Panel: No Data to Display Imaging and Studies Imaging and Studies Study information below may be from another EMR and interpreted by another provider. Please see original notes in EMR for more complete details. EKG Summary: EKG PATIENT NAME: Holland Garduno UNIT #: [id number] ORDERING PROVIDER: Lane Lyles M.D. PRIMARY CARE PROVIDER: ARLEY LUU MD DATE/TIME OF SERVICE: 06/04/211649 : 1955 PERFORMING LOCATION: ER APPROVED REPORT Exam: Resting ECG Reason for Exam: short of breath Patient Location: E HR:66 bpm ECG Measurements Heart Rate 66 AXIS TN 145 P 40 QRSd 89 QRS 11 QT 425 T31 QTc 447 Conclusion Sinus rhythm...normal P axis, V-rate 60- 99 <Electronically signed by LANE LYLES MD in [place]> E-Sign Date: 06/04/21 E-Sign Time: 1651 ADDENDUM APPROVED REPORT Exam: Resting ECG Reason for Exam: short of breath Patient Location: E HR:66 bpm ECG Measurements Heart Rate 66 AXIS TN 145 P 40 QRSd 89 QRS 11 QT 425 T31 QTc 447 Conclusion Sinus rhythm...normal P axis, V-rate 60- 99 I have reviewed and I agree with the emergency room physician's ECG interpretation. Electronically signed by: <Electronically signed by Susana Polanco M.D. in [place]> 06/08/21 0848 Cosigned by: Other Study Summary:: cervical spine mRI results reviewed and results in chart Anesthesia Assessment and Plan Anesthesia History Personal History: No History of Anesthesia Complications Family History: No Family History of Anesthesia Complications Exercise Tolerance Exercise Tolerance: Metabolic Equivalents>4 Pertinent Negatives Pertinent Negatives: No Symptoms of GERD, No Major Cardiovascular Symptoms or Complaints, No Major Pulmonary Symptoms or Complaints and No History of CVA/TIA Cardiac & Pulmonary Exam Cardiac Exam: Normal S1/S2 Heart Sounds Pulmonary Exam: Clear Bilateral Breath Sounds Implantable Cardiac Device Does patient have a Pacemaker or an ICD?: No Airway Exam Known Difficult Airway: No Mallampati Class: 2 Mouth Opening: Normal (> 3cm) Thyromental Distance: Less than 3 cm Neck Range of Motion: Full ROM Neck Circumference: Normal Teeth Condition: Normal Dentition ASA Classification ASA Score: ASA 2 Emergency Case?: No NPO Status NPO Status: NPO Clears >2 hours, Solids >8 hours Anesthesia Plan Resuscitation Status: Full Code Anesthesia Technique: General Anesthesia Airway Planned: Natural Airway Monitors Used: Standard Monitors
[2023-08-21 12:03] VITALS: BMI 26.1
--- NOTE | 2023-08-21 12:57 | BOWEL_PTH ---
PATIENT: Holland Garduno LOC: [facility] U#:[id number] AGE/SX: 68/M ROOM: RE08/21/[address]: Andres Salguero MD : 1955 BED: DIS: 08/21/2023 SPEC #: [id number] RECD: 08/21/23 17:49 STATUS: CHUNGrace RE #: [id number] PACHECO: 08/21/23 12:[address]: Andres Salguero DEPT: Surgical Specimen RECD BY: Josefa Romano ENTERED: 08/21/23 17:50 SP TYPE: Bowel OTHR DR: Skip Reilly Tissues: 1 - BIOPSY BOWEL 2 - BIOPSY BOWEL Procedures: GROSS AND MICRO LEVEL 4 Comments: [id number]
[2023-08-21 13:24] VITALS: BP 94/63; PULSE 75; RESP 16; TEMP 36.5; O2SAT 96
--- NOTE | 2023-08-21 13:26 | W.ANESPOSTOP ---
Postoperative Evaluation Date, Time and Location Date Performed: 08/21/23 Time Performed: 13:27 Patient Location: Day Surgery Unit Vital Signs Most Recent Imported Vital Signs: Most Recent Vital Signs Temp Pulse Resp BP Pulse Ox 36.5 C 75 16 94/63 L 96 08/21/23 13:24 08/21/23 13:24 08/21/23 13:24 08/21/23 13:24 08/21/23 13:24 Pain Score Most Recent Pain Score: Most Recent Pain Score Pain Level 0 08/21/23 11:12 Assessment Mental Status: Awake (Alert & Oriented to Patient Baseline) Airway and Respiratory Function: Patent airway with normal (patient baseline) respiratory exam Cardiovascular Function: Hemodynamically Stable Hydration Status: Adequately Hydrated Nausea & Vomiting: No Nausea or Vomiting Pain: Pt. Denies Any Pain Peripheral Nerve Block: Patient did not receive a nerve block
[2023-08-21 14:03] VITALS: BP 126/76; PULSE 68; RESP 16; TEMP 36.5; O2SAT 99
== END 2023-08-21 10:49 | disposition home or self-care (01) ==
LOC: SUR 10:49
PROVIDERS: PCP Internal Medicine; Visit Provider Surgery
PROC: 0DJD8ZZ Inspection of Lower Intestinal Tract, Via Natural or Artificial Opening Endoscopic (ICD-10-PCS; CPT 45378; principal; 2023-08-21 12:45)
DX: Z12.11 Encounter for screening for malignant neoplasm of colon (principal); K63.5 Polyp of colon; K57.30 Diverticulosis of large intestine without perforation or abscess without bleeding; Z86.010 Personal history of colon polyps
CPT/HCPCS: 45380; 88305; J2704

== ENCOUNTER → 2023-09-05 08:24 | Outpatient (BNVA) | payer MEDICARE, SELFPAY | PROVIDERS: PCP Internal Medicine; Referring Provider Internal Medicine; Visit Provider Podiatrist | DX: M79.671 Pain in right foot; M25.572 Pain in left ankle and joints of left foot; M19.071 Primary osteoarthritis, right ankle and foot; M19.072 Primary osteoarthritis, left ankle and foot; G62.9 Polyneuropathy, unspecified; B07.0 Plantar wart; B35.3 Tinea pedis; B35.1 Tinea unguium | CPT/HCPCS: 99213 ==

== ENCOUNTER 2023-09-06 15:49 | Outpatient (CLI) | payer MEDICARE, SELFPAY ==
--- NOTE | 2023-09-06 15:07 | DI.RAD_ITS ---
Exam(s) XR SHOULDER RT COMPLETE 2+V EXAM: XR SHOULDER RT COMPLETE 2+V CLINICAL HISTORY: RIGHT SHOULDER PAIN. TECHNIQUE: 2D digital imaging was performed. Five views. COMPARISON: MR MR UPPER JOINT RT WO from 06/03/2019 FINDINGS: BONES: No acute fracture is present. No bony destructive lesion is seen. Spurring at the tip of the acromion. Small small degenerative subchondral cysts at the greater tuberosity. JOINTS: No dislocation present. No significant spurring at the AC joint. Mild spurring at the gleno humeral joint. SOFT TISSUE: Normal. IMPRESSION: Mild degenerative changes. DATA REPOSITORY: RADIATION DOSE DELIVERED:
== END 2023-09-06 15:50 | disposition home or self-care (01) ==
LOC: DIORS 15:49
PROVIDERS: PCP Internal Medicine; Referring Provider Internal Medicine; Visit Provider Student in an Organized Health Care Education/Training Program
DX: S46.011D Strain of muscle(s) and tendon(s) of the rotator cuff of right shoulder, subsequent encounter; X58.XXXD Exposure to other specified factors, subsequent encounter
CPT/HCPCS: 99213; 73030

== ENCOUNTER 2023-09-12 15:58 | Outpatient (CLI) | payer MEDICARE, SELFPAY ==
--- NOTE | 2023-09-12 09:45 | DI.RAD_ITS ---
Exam(s) XR HIP LT COMPLETE AP PELVIS EXAM: XR HIP LT COMPLETE AP PELVIS CLINICAL HISTORY: LEFT HIP PAIN. TECHNIQUE: 2D digital imaging was performed of the left hip. Two views were obtained. AP pelvis an d lateral left hip views were obtained. COMPARISON: CR RT HIP COMPLETE AP PELVIS from 09/26/2016 FINDINGS: BONES: No acute fracture is present. No bony destructive lesion is seen. JOINTS: No dislocation present. There is again seen marked narrowing of the superior joint space of t he left hip. There is subchondral sclerosis. Note is again made of a right total hip replacement. This is incompletely imaged on this examination. The sacroiliac joints and symphysis pubis are unrem arkable. SOFT TISSUE: Normal. IMPRESSION: Stable degenerative changes of the left hip. DATA REPOSITORY: RADIATION DOSE DELIVERED:
== END 2023-09-12 15:59 | disposition home or self-care (01) ==
LOC: DIORS 15:58
PROVIDERS: PCP Internal Medicine; Referring Provider Internal Medicine; Visit Provider Physician Assistant
DX: M25.552 Pain in left hip (principal); M16.12 Unilateral primary osteoarthritis, left hip
CPT/HCPCS: 99213; 73502

== ENCOUNTER → 2023-09-18 09:51 | Outpatient (BNVA) | payer MEDICARE, SELFPAY | PROVIDERS: PCP Internal Medicine; Referring Provider Podiatrist; Visit Provider Psychiatry & Neurology Neurology | DX: G62.9 Polyneuropathy, unspecified (principal); R29.2 Abnormal reflex | CPT/HCPCS: 99215 ==

== ENCOUNTER → 2023-09-19 03:44 | Outpatient (CLI) | payer MEDICARE, SELFPAY ==
--- NOTE | 2023-09-19 08:00 | DI.MRI_ITS ---
Exam(s) MR UPPER JOINT RT WO EXAM: MR UPPER JOINT RT WO CLINICAL HISTORY: R SHOULDER PAIN,traumatic tear rt rotator cuff,s46.011a TECHNIQUE: Multiplanar multisequence MRI of the shoulder was performed. COMPARISON: MR MR UPPER JOINT RT WO from 06/03/2019 CR XR SHOULDER RT COMPLETE 2+V from 09/06/2023 FINDINGS: MARROW:There is no evidence of fracture, Hill-Sachs deformity, nor ominous osseous lesions. GLENOHUMERAL JOINT: There are moderate degenerative changes in the glenohumeral joint with some artic ular cartilage narrowing and small osteophyte on the inferior articular surface of the humeral head e vident. Small amount of increased joint fluid. No loose intra-articular bodies evident. There is a degenerative subarticular cysts now evident in the anterior aspect of the humeral head at the lesser tuberosity level. Also few degenerative subarticular cysts are noted in the greater tuberosity, mor e so than previous. ROTATOR CUFF MECHANISM: AC JOINT/ACROMIUM: Moderate degenerative changes in the AC joint noted. No prominent downgoing osteo phytes.. There is no evidence of os acromiale. Supraspinatus: There is tearing of the most anterior aspect of the distal supraspinatus tendon with f luid signal traversing the tendon at this level and with significant amount of fluid in the overlying subacromial-subdeltoid bursa evident. There is tendinitis signal in the more posterior aspect of th e remaining intact supraspinatus tendon. Remainder of the supraspinatus is intact and there is no at rophy. Infraspinatus: There is a focus of signal abnormality consistent with element of tendinitis at the mu sculotendinous junction of the infraspinatus. No high-grade tear. No atrophy. Teres Minor: Intact. No evidence of tear nor muscle atrophy. Subscapularis/anterior cuff: There is some thinning of the tendon with partial tearing evident, this anterior to the lesser tuberosity where there is now a degenerative subarticular cyst which was not e vident on the 2019 study. BICEPS TENDON: There is attenuation of the biceps tendon within the intertubercular groove. Also att enuation of the intra-articular component. LABRUM: No obvious tear of the superior labrum. Posterior labrum appears intact. Mild abnormal signal in the anterior labrum is again noted. Inferior labrum appears intact. Inferior glenohumeral ligament appea rs intact. There is no evidence of paralabral cyst. QUADRILATERAL SPACE: No evidence of mass in the region of the axillary nerve and dorsal circumflex hu meral vessels. Visualized triceps muscle at this level appears unremarkable. IMPRESSION: 1. There is a for full-thickness tear in the most anterior aspect of the distal supraspinatus tendon. No retraction. No muscle atrophy. 2. Focal tendinitis signal at the insertional aspect of the infraspinatus. No high-grade tear of the infraspinatus. 3. The appearance of the subscapularis is somewhat attenuated when compared to the prior 2019 study a nd the appearance is a partial tearing. There is also a degenerative subarticular cyst now evident i n the lesser tuberosity insertional region of the subscapularis. This cyst measures 6 x 6 mm. 4. Biceps tendon is attenuated both within the intertubercular groove and in the intra-articular com ponent, consistent with element of tearing of this structure. 5. Some degenerative change in the labrum but less evidence of tearing than was evident on the 2019 study. DATA REPOSITORY:
== END ==
PROVIDERS: PCP Internal Medicine; Visit Provider Student in an Organized Health Care Education/Training Program
DX: S46.011A Strain of muscle(s) and tendon(s) of the rotator cuff of right shoulder, initial encounter (principal); X58.XXXA Exposure to other specified factors, initial encounter
CPT/HCPCS: 73221

== ENCOUNTER → 2023-09-27 09:59 | Outpatient (BNVA) | payer MEDICARE, SELFPAY | PROVIDERS: PCP Internal Medicine; Referring Provider Internal Medicine; Visit Provider Student in an Organized Health Care Education/Training Program | DX: S46.011A Strain of muscle(s) and tendon(s) of the rotator cuff of right shoulder, initial encounter (principal); X58.XXXA Exposure to other specified factors, initial encounter | CPT/HCPCS: 99214 ==

== ENCOUNTER 2023-10-06 12:45 | Outpatient (CLI) | payer MEDICARE, SELFPAY ==
[2023-10-06 11:13] LABS: Hemoglobin A1C 5.6 % (<5.7)
[2023-10-06 11:52] LABS: Vitamin B12 626 pg/mL (193-986)
[2023-10-09 13:03] LABS: Albumin 66.7 % (55.8-66.1); Albumin g/dL 4.5 g/dL (3.6-5.2); Total Protein 6.8 g/dL (6.3-8.2)
== END 2023-10-06 12:46 | disposition home or self-care (01) ==
LOC: LBO 12:45
PROVIDERS: PCP Internal Medicine; Visit Provider Psychiatry & Neurology Neurology
DX: G62.9 Polyneuropathy, unspecified (principal); R73.9 Hyperglycemia, unspecified
CPT/HCPCS: 36415; 82607; 83036; 84165

== ENCOUNTER → 2023-10-11 01:06 | Outpatient (CLI) | payer MEDICARE, SELFPAY ==
--- NOTE | 2023-10-11 10:25 | DI.MRI_ITS ---
Exam(s) MR CERVICAL SPINE WO EXAM: MR CERVICAL SPINE WO CLINICAL HISTORY: ? myelopathy,BABINSKI REFLEX,R29.2 TECHNIQUE: Multiplanar multisequence MRI of the cervical spine was performed without intravenous con trast. COMPARISON: MR MR cervical spine wo from 06/12/2018 FINDINGS: BONES: Vertebral body heights are maintained. Endplate osteophytes are seen at multiple levels of the cervical spine. Alignment is normal. There is again seen a hemangioma or fatty rest in the C6 verte bral body. CERVICAL CORD: Craniovertebral junction is unremarkable. The cervical cord is normal size and signal intensity. There is no evidence of Chiari malformation or syrinx. No evidence of tonsillar ectopia. SOFT TISSUES: Unremarkable. C2-C3: No disc herniation or bulge is identified. No significant central spinal canal or neural peter inal stenosis C3-C4: There are degenerative changes of the uncovertebral joints on the right causing moderate right neural foraminal stenosis. No significant left neural foraminal stenosis is seen. No central spina l canal stenosis is seen. No focal disc herniation is seen. There are degenerative changes of the f acets at this level. C4-C5: No disc herniation or bulge is identified. No significant central spinal canal or neural peter inal stenosis. Mild degenerative changes of the facets are seen on the right. C5-C6: No disc herniation or bulge is identified. Degenerative changes of the right uncovertebral freedom nts are present causing right neural foraminal stenosis. Mild changes are seen on the left with mild left neural foraminal stenosis. No significant central spinal canal stenosis. C6-C7: No disc herniation or bulge is identified. No significant central spinal canal or neural peter inal stenosis C7-T1: No disc herniation or bulge is identified. No significant central spinal canal or neural peter inal stenosis IMPRESSION: Multilevel degenerative changes in the cervical spine which are most marked at C3-C4, C4-C5 and C5-C6 as described above. DATA REPOSITORY:
== END ==
PROVIDERS: PCP Internal Medicine; Visit Provider Psychiatry & Neurology Neurology
DX: M50.121 Cervical disc disorder at C4-C5 level with radiculopathy (principal)
CPT/HCPCS: 72141

== ENCOUNTER 2023-10-20 07:59 | Day surgery (SDC) | payer MEDICARE, SELFPAY ==
[2023-10-20] VITALS (13 sets, daily range): BP systolic 135–171; BP diastolic 69–86; PULSE 62–84; RESP 14–18; TEMP 36–37; O2SAT 94–98; BMI 27.1
--- NOTE | 2023-10-20 07:10 | W.PM.DSUDISC ---
Date of service: 10/20/23 Time of Service: 15:00 Discharge Plan Disposition Patient Disposition: Home Condition: Stable Discharge Details Attending Provider: Nic Hills Primary Care Provider: Skip Reilly Home Meds and New Rx's Prescriptions: New naproxen 250 mg tablet 250 - 500 mg PO BID PRN (Reason: moderate pain and swelling) Qty: 40 0RF oxycodone 5 mg tablet 5 - 10 mg PO .q4-6h PRN (Reason: severe pain) Qty: 18 0RF Continued tamsulosin [Flomax] 0.4 mg capsule 0.4 mg PO DAILY B-complex with vitamin C Capsule 1 cap PO DAILY multivitamin [Multiple Vitamins] Tablet 1 tab PO DAILY omega-3 fatty acids 1,000 mg capsule 1,000 mg PO DAILY citalopram 10 mg tablet 10 mg PO DAILY Discontinued meloxicam 7.5 mg tablet 7.5 mg PO DAILY ibuprofen 200 MG capsule 600 mg PO Q8H PRN Discharge Instructions Additional Instructions: Surgery: Right shoulder arthroscopy with rotator cuff repair (chronic subscapularis and bursal supraspinatus), anterior labral repair, extensive debridement, and subacromial decompression. Activity: For 6 weeks, you should keep your arm at your side in a neutral position at all times except for physical therapy. Do not try to lift or raise your arm using your own muscles. You should use the sling whenever you are out of the house. You may have to adjust the abduction pillow or remove it for comfort. At home it is best to remove the sling and rest the arm on a pillow at your side or support the operative side with your other hand. You may allow the arm to dangle at your side. A physical therapy prescription will be sent electronically to begin in about 3 weeks. CONSERVATIVE protocol. Please follow labral repair range of motion guidelines. Postoperative protocol/ ROM restrictions: Weeks 0-3: 0 degrees external rotation Weeks 3-6: Maximum 30 degrees external rotation and 90 degrees forward elevation Weeks 6-8: Maximum 45 degrees external rotation and 120 degrees forward elevation Weeks 8+: Advance to full range of motion Weeks 12+: Start light rotator cuff strengthening and dynamic scapular stabilization Prescriptions: Naproxen 250 mg take 1-2 every 12 hours with a meal as needed for moderate pain Oxycodone 5 mg take 1-2 every 4-6 hours as needed for severe pain You may use [id number] Tylenol (acetaminophen) as needed for mild pain. These pain medications may be taken all at once or in different combinations as needed. Also, recommend Colace (docusate) as a stool softener as surgery and pain medicine cause constipation. You may try [id number] diphenhydramine (Benadryl) 25-50 mg nightly as a sleep aid Dressings: Remove shoulder bandage after 3 days. Leave the sticky Steri-Strips in place until they fall off or remove them after you shower. Cover the incisions with Band-Aids or leave them open to air. You may shower after 5 days. Follow-up: 10-[address] Hills You may take off the leg compression stockings this evening at home. You may also leave them on a few days longer if you have a history of leg swelling or edema. Let us know right away if you develop any redness, drainage, fevers, chest pain, or trouble breathing. Do not drink alcohol or drive for at least 24 hours after anesthesia. Please call the office during business hours with any questions or concerns. Stand Alone Forms: Anesthesia Discharge Inst., Danita.Nerve Block Instructions, Ivory Vivas (DSU) Referrals: Nic Hills MD [ [facility] STAFF PHYSICIAN] - 11/01/23 10:15 am Discharge Orders Discharge Orders: Discharge Order (Routine); Ordered 10/20/23 Ordered By: Adelaida Ron DS: Diagnosis Discharge Diagnosis (1) Traumatic tear of right rotator cuff: Status: Acute (2) Rupture of right proximal biceps tendon: Status: Acute (3) Bursitis of right shoulder: Status: Acute
[2023-10-20] MEDS: Lactated Ringers 1,000 ML 30 ML IV (08:42)
--- NOTE | 2023-10-20 09:43 | ANES.PREOP_ITS ---
General Info Date of Service Date Performed: 10/20/23 Height: 5 ft 10 in Weight: 85.8 kg Body Mass Index (BMI): 27.1 Surgical Procedure: Operation Date: 10/20/23 11:10 Proposed Procedure Side Surgeon p Shoulder Rotator Cuff Arthroscopic w/Extensive Debridement, Biceps Tenotomy vs Tenodesis, Subacromial Decompression Right Nic Hills MD Meds Allergies and Home Medications Allergies Allergy/AdvReac Type Severity Reaction Status Date / Time No Known Allergies Allergy Verified 10/20/23 08:15 Home Medication Medication Instructions Recorded ibuprofen 200 mg capsule 600 mg PO Q8H PRN 02/06/15 tamsulosin 0.4 mg capsule (Flomax) 0.4 mg PO DAILY 05/24/19 meloxicam 7.5 mg tablet 7.5 mg PO DAILY 05/02/23 citalopram 10 mg tablet 10 mg PO DAILY 05/31/23 B-complex with vitamin C 1 cap PO DAILY 08/17/23 multivitamin (Multiple Vitamins 1 tab PO DAILY 08/17/23 tablet) omega-3 fatty acids 1,000 mg 1,000 mg PO DAILY 08/17/23 capsule Current Visit Medications: Current Medications Generic Name Dose Route Start Last Admin Trade Name Freq PRN Reason Stop Dose Admin Ringer's Solution 1,000 mls @ 30 mls/hr 10/20/23 06:00 10/20/23 08:42 IV 11/18/23 23:59 30 mls/hr INFUSION JUAN Administration Cefazolin Sodium/Dextrose 2 gm in 50 mls @ 100 mls/hr 10/20/23 06:00 Ancef Duplex IVPB 10/20/23 16:00 PREOP JUAN Tranexamic Acid/Sodium Chloride 100 mls @ 600 mls/hr 10/20/23 06:00 IVPB 10/20/23 16:00 PREOP JUAN IV Miscellaneous Supplies 1 each 10/20/23 06:00 Iv Access IV 11/18/23 23:59 DIRECTED JUAN Oxycodone HCl 0 mg 10/20/23 07:09 Oxycodone 5 Mg Tab PO 11/19/23 07:08 Q3H PRN PRN Pain Sodium Chloride 0 ml 10/20/23 06:00 Normal Saline Flush 10 Ml Syr IV 11/18/23 23:59 PRN PRN Sodium Chloride 0 ml 10/20/23 06:00 Normal Saline 10 Ml Vial IJ 11/18/23 23:59 DIRECTED PRN Sterile Water 0 ml 10/20/23 06:00 Water,Injection,Sterile 10 Ml Vial IJ 11/18/23 23:59 DIRECTED PRN PFSH Active Problems Active Problems: Problem Status Onset Code Babinski reflex R29.2 Peripheral neuropathy G62.9 Degenerative joint disease of left hip M16.12 Traumatic tear of right rotator cuff ~04/2023 S46.011A Screen for colon cancer Z12.11 Tinea pedis B35.3 Plantar verruca B07.0 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 Degenerative joint disease, right, foot M19.071 Pain in left ankle M25.572 Pain in right foot M79.671 Pain in joint, foot, left M25.572 Anxiety F41.9 Arthritis of left hand M19.042 Lumbar radiculopathy, acute M54.16 Right rotator cuff tear M75.101 Biceps tendinitis of right shoulder M75.21 Right rotator cuff tendonitis M75.81 Medical History Medical History Hyperplastic colon polyp (~07/2023) Adrenal nodule Kidney stones BPH w urinary obs/LUTS Osteoarthritis Impaired wound healing Surgical History Surgical History Status post total hip replacement, right 2009 S/P vasectomy 1986 S/P appendectomy 1988 S/P cholecystectomy 2006 History of colonoscopy (~07/2023) path sent Tobacco Smoking/Tobacco Use Status: Former Tobacco Use Alcohol Alcohol Intake: current Alcohol intake frequency: 0-2 drinks per day Alcohol type: hard liquor Substance Use Substance use: Rarely Substance use type: marijuana Details: 5oz of whiskey last night Vital Signs and Lab Results Vital Signs Most Recent Vital Signs in EMR: Most Recent Vital Signs Temp Pulse Resp BP Pulse Ox 36.1 C L 64 16 145/83 H 96 10/20/23 08:00 10/20/23 08:00 10/20/23 08:00 10/20/23 08:00 10/20/23 08:00 Lab Results Blood Type / Crossmatch: No Data to Display Complete Blood Count: No Data to Display Complete Metabolic Panel: Hemoglobin A1c 5.6 % (<5.7) 10/06/23 10:48 Liver Function Panel: No Data to Display Coagulation Panel: No Data to Display Cardiac Panel: No Data to Display Arterial Blood Gas: No Data to Display Venous Blood Gas: No Data to Display Pancreas Panel: No Data to Display Thyroid Panel: No Data to Display Infectious Disease: No Data to Display Blood Cultures: No Data to Display Toxicology Panel: No Data to Display Imaging and Studies Imaging and Studies Study information below may be from another EMR and interpreted by another provider. Please see original notes in EMR for more complete details. EKG Summary: EKG PATIENT NAME: Holland Garduno UNIT #: [id number] ORDERING PROVIDER: Lane Lyles M.D. PRIMARY CARE PROVIDER: ARLEY LUU MD DATE/TIME OF SERVICE: 06/04/211649 : 1955 PERFORMING LOCATION: ER APPROVED REPORT Exam: Resting ECG Reason for Exam: short of breath Patient Location: E HR:66 bpm ECG Measurements Heart Rate 66 AXIS SC 145 P 40 QRSd 89 QRS 11 QT 425 T31 QTc 447 Conclusion Sinus rhythm...normal P axis, V-rate 60- 99 --- <Electronically signed by LANE LYLES MD in [facility]> E-Sign Date: 06/04/21 E-Sign Time: 1651 ADDENDUM APPROVED REPORT Exam: Resting ECG Reason for Exam: short of breath Patient Location: E HR:66 bpm ECG Measurements Heart Rate 66 AXIS SC 145 P 40 QRSd 89 QRS 11 QT 425 T31 QTc 447 Conclusion Sinus rhythm...normal P axis, V-rate 60- 99 I have reviewed and I agree with the emergency room physician's ECG interpretation. Electronically signed by: <Electronically signed by Susana Polanco M.D. in [facility]> 06/08/21 0848 Cosigned by: Other Study Summary:: cervical spine mRI results reviewed and results in chart Anesthesia Assessment and Plan Anesthesia History Personal History: No History of Anesthesia Complications Family History: No Family History of Anesthesia Complications Exercise Tolerance Exercise Tolerance: Metabolic Equivalents>4 Pertinent Negatives Pertinent Negatives: No Symptoms of GERD, No Major Cardiovascular Symptoms or Complaints, No Major Pulmonary Symptoms or Complaints and No History of CVA/TIA Cardiac & Pulmonary Exam Cardiac Exam: Normal S1/S2 Heart Sounds Pulmonary Exam: Clear Bilateral Breath Sounds Implantable Cardiac Device Does patient have a Pacemaker or an ICD?: No Airway Exam Known Difficult Airway: No Mallampati Class: 2 Mouth Opening: Normal (> 3cm) Thyromental Distance: Less than 3 cm Neck Range of Motion: Full ROM Neck Circumference: Normal Teeth Condition: Loose or Chipped (pt reports chipped molars; R upper rear molar, L upper rear molar, L front upper tooth) ASA Classification ASA Score: ASA 2 Emergency Case?: No NPO Status NPO Status: NPO Clears >2 hours, Solids >8 hours Anesthesia Plan Resuscitation Status: Full Code Anesthesia Technique: General Anesthesia Airway Planned: Endotracheal Tube Pain Management: Surgeon and patient request nerve block Monitors Used: Standard Monitors and SedLine
--- NOTE | 2023-10-20 11:22 | W.ANESNERVE ---
Nerve Block Single Injection Procedure Date and Time Date Performed: 10/20/23 Procedure Start: 10:50 Location Where Procedure Performed Procedure Location: Day Surgery Unit Reason Performed: Postoperative Analgesia Requesting Provider: Nic Hills Timeout Performed Timeout Performed: Yes Monitoring Used ECG, Blood Pressure, SpO2 and See EMR for corresponding vital signs Sterility Sterility: Hand Hygiene, Surgical Cap, Surgical Mask, Sterile Gloves and Chlorhexidine Sedation Given During Procedure Sedation Given (Indicate Dose Given): Versed IV Dose:: 1mg Patient Mental Status Patient Mental Status: Awake Nerve Block 1st Nerve Block: Laterality: Right Block Type: Interscalene Ultrasound Image Saved?: Yes Needle / Catheter Used: 100mm SonoPlex II Local Anesthetic Bolus (Indicate Dose Given): Lidocaine used for local infiltration of skin, Injected in 3-5ml increments after negative blood aspiration, Bupivacaine 0.5% Dose:: 10ml and Exparel Dose:: 10ml Additives (Indicate Dose Given): None Ultrasound: Sterile probe cover and gel used Nerve Stimulator: Supplement to Ultrasound use Paresthesia: None (See note) Procedure Tolerated: No Complications Procedure Outcome: Successful Procedure Comment: Began procedure with nerve stim on and good needle/nerve visualization. Patient c/o muscle twitch and constant discomfort at needle tip which caused him to move/jump/startle during the procedure. After slightly withdrawing needle/changing approach, making sure correct landmarks were identified, decision made to turn off nerve stim as this was felt to increase risk of injury/discomfort for this patient.. This improved patient comfort and ability to tolerate procedure with ease. Procedure completed without further discomfort and block closer to supraclavicular block. Discussed with patient this was likely due to direct muscle stimulation given distance from observed nerve collection, however the safest step would be to adjust the approach and just take the block very slowly. He had no complaints after and procedure completed. At no point were there any paresthesias into shoulder/arm. Performed By: Gilberto Espinosa
[2023-10-20] MEDS: ceFAZolin 2 GM/50 ML BAG IVPB (11:34)
--- NOTE | 2023-10-20 11:35 | ROE_ITS ---
Date of service: 10/20/23 Time of Service: 11:36 Operative Note Operative Note DATE OF PROCEDURE: 10/20/23 PRE-OP DIAGNOSIS: Right: 1. Rotator cuff tear 2. LHB partial tearing vs proximal rupture 3. Bursitis POST-OP DIAGNOSIS: other Right: 1. Rotator cuff tear: Chronic upper majority subscapularis, acute bursal supraspinatus 2. Proximal biceps rupture 3. Bursitis 4. Anterior inferior labral tear PROCEDURE: Right: 1. Rotator cuff repair, CPT# 54708. This involved repair of the subscapularis and supraspinatus using anchors and sutures to reattach the rotator cuff back to the footprint of the lesser and greater tuberosity. 2. Labral repair, CPT #14529: This involved suture and anchor repair of the anterior inferior labral tear back to the margin of the glenoid 3. Extensive debridement, CPT# 07813. This involved using arthroscopic hand instruments, power instruments, and radiofrequency instruments to release the long head of the biceps tendon and debride areas of SLAP tearing, rotator interval synovitis, chondromalacia about the lesser tuberosity, anterior capsular contracture release working within the glenohumeral joint anteriorly, superiorly and posteriorly. 4. Subacromial decompression with partial acromioplasty, CPT# 39613. This involved using arthroscopic power instruments and a radiofrequency wand to complete a bursectomy and smooth the undersurface of the acromion. The wet process assistant head miller was medically required in order to help assist in techniques above, which require positioning the arm, holding the arthroscope, and manipulating multiple instruments and sutures at the same time. This cannot be done without the help of an experienced wet process assistant head miller. SURGEON: Nic Hills BELT BUILDER HELPER: Adelaida Ron ANESTHESIA TYPE: Local By Surgeon, General LMA/ETT and Primary Nerve Block Refer to Anesthesia Record ESTIMATED BLOOD LOSS: 5 PATHOLOGY: none sent COMPLICATIONS: None Patient was transported to: PACU Patient's condition: stable Implants: Arthrex: 4.75mm knoteless SwiveLock x 1, 5.5mm SwiveLock x 1, and 2.9mm PushLock x1 Indications: The patient was diagnosed with the above conditions and appropriately indicated for surgical intervention. Please see complete medical record for details. Findings: Exam under anesthesia: Full range of motion, no instability Glenohumeral joint: Obvious anterior inferior labral tear about the area of typical Bankart injury with adjacent mild to moderate glenoid chondromalacia. Good quality labral tissue although completely detached from about 3-5 o'clock. Previous proximal biceps rupture, no biceps visualized intra-articularly. SLAP tear and fraying from previous biceps rupture at the biceps anchor. Upper margin subscapularis chronic?appearing medially scarred retracted tear with medially retracted [facility]. No apparent articular supraspinatus or infraspinatus tearing. Moderate lesser tuberosity anterior superior humeral head chondromalacia. Subacromial space: Significant bursitis, reduced subacromial space, obvious p artial bursal supraspinatus rotator cuff tear about 50% tissue with intact articular layers. Moderately diffuse supraspinatus bursal fraying degeneration. Procedure Description: In the operating room, general anesthesia was induced. Bilateral shoulders were examined. The patient was positioned in the beachchair position. All bony prominences were well-padded. Preoperative antibiotics were administered. The shoulder was prepped and draped in the usual sterile fashion. The correct patient, procedure, and side of the procedure were all verified prior to incision. Starting through the posterior portal a standard complete diagnostic arthroscopy was performed of the glenohumeral joint including inspection of the long head of the biceps, anterior and superior labrum, subscapularis tendon, supraspinatus and infraspinatus tendons, and axillary recess. The glenoid and humeral head cartilage as well as the posterior labrum were inspected from an anterior viewing portal. Significant findings and interventions noted above. Of note, an anterior capsular release performed freeing the [facility] L from the retracted scarred subscapularis. The subscapularis was freed from and developing anterior capsule using the arthroscopic scissors and mobilized to reapposed the lesser tuberosity quite nicely. The lesser tuberosity was debrided of loose cartilage edges and fibrillations smooth. SLAP tear and remnant on the biceps anchor from previous rupture was debrided and contoured properly. Rigid cannula was inserted anteriorly, the anterior inferior labral tear was inspected with good quality labral tissue and only a small area of chondromalacia adjacent to the injury, with remainder of the inferior and anterior superior Rheumatac decision made to proceed repair of what did appear to be a subacute or chronic Bankart injury. Various rest and tissue liberator's were used to prepare the glenoid margin and confirm appropriate mobilization of the labrum at the zone of injury. About the center of the injury the 9 degree lasso was used to shuttle a suture tape FiberLink in cinch mode about the entirety of the labrum, but just the labrum taking care to avoid any additional capsule or ligamentous involvement to prevent causing stiffness. The push lock drill guide was placed 11 on margin, drilled to the appropriate depth, and a push lock anchor loaded with the repair suture with appropriate tension and excellent fixation on the repair. Repair was inspected and stable the remainder of the anterior to inferior and superior areas. Next, the subscapularis was confirmed to be mobilized to the prepared lesser tuberosity. The larger defect of the superior portion of the tendon was then secured superiorly and laterally using a 90 degree lasso shoveling a suture tape FiberLink, traction the stitch used to shuttle a FiberTape simple stitch through the more medial portion of the tear at the subscapularis body just past the split with the intact inferior portion. These repair sutures were used to confirm reduction to the lesser tuberosity some additional release is done to ensure no undue tension. Lesser tuberosity was punched and then the repair suture was secured with a knotless 4.75 mm SwiveLock anchor. The knotless suture was then passed back around the lateral portion of the subscapularis incorporating the split between the inferior and superior portions and secured bypassing the free ends through the knotless anchor mechanism. Subscapularis repair was inspected through range of motion probed and demonstrated excellent fixation strength without restricting motion. Starting through the posterior portal, the arthroscope was directed into the subacromial space. A lateral 50 yard line lateral portal was created. A combination of power instruments and a radiofrequency ablator were used to debride bursitis anteriorly, posteriorly, and laterally as well as expose and smooth bone spurring on the undersurface of the acromion. The coracoacromial ligament was partially released. The bursectomy was completed viewing laterally and working from posteriorly and the rotator cuff was thoroughly inspected with findings noted above. The supraspinatus bursal tear was inspected, the articular layers were guevara and intact. Decision was made not to take down the tendon from the tuberosity for full-thickness repair and instead repair the torn bursal layers. The self retrieving NTQ-Dataion suture passer was used to shuttle a FiberTape inverted horizontal mattress through the central portion of the bursal supraspinatus tear widely spaced. An additional suture tape FiberLink was shuttled through the anteriormost and then posterior most portions tear using the 90 degree lasso. The repair was provisionally reduced using the clear Tangela cannula insert and all 4 repair sutures demonstrated excellent spacing and good tissue hold. The lateral aspect of the greater tuberosity was punched, due to soft bone and oversized anchor was then chosen with all repair anchors carefully tensioned avoiding undue tension on this partial bursal repair and secured to the 5.5 mm SwiveLock anchor. The repair was inspected stable through testing with good fixation strength. The shoulder was drained of arthroscopic fluid. All portal sites were copiously irrigated. These incisions were closed using 3-0 Monocryl in a buried fashion and then covered with Mastisol, Steri-Strips, Xeroform, dry gauze, and ABDs. The dressings were covered and secured with Medipore tape. The operative extremity was placed into a sling for immobilization. The patient awoke from anesthesia without complication and was transferred to the recovery room in a stable condition.
[2023-10-20] MEDS: EPINEPHrine 10 MG/10 ML ML (13:14)
[2023-10-20] MEDS: fentaNYL 100 MCG/2 ML VIAL IVP ×2 (14:09→14:18)
[2023-10-20] MEDS: HYDROmorphone 2 MG/ML SYR IVP (14:48)
--- NOTE | 2023-10-20 14:58 | W.ANESPOSTOP ---
Postoperative Evaluation Date, Time and Location Date Performed: 10/20/23 Time Performed: 14:58 Patient Location: PACU Vital Signs Most Recent Imported Vital Signs: Most Recent Vital Signs Temp Pulse Resp BP Pulse Ox 36.7 C 72 15 137/70 97 10/20/23 14:55 10/20/23 14:55 10/20/23 14:55 10/20/23 14:55 10/20/23 14:55 Pain Score Most Recent Pain Score: Most Recent Pain Score Pain Level 4 10/20/23 14:55 Assessment Mental Status: Awake (Alert & Oriented to Patient Baseline) Airway and Respiratory Function: Patent airway with normal (patient baseline) respiratory exam Cardiovascular Function: Hemodynamically Stable Hydration Status: Adequately Hydrated Nausea & Vomiting: No Nausea or Vomiting Pain: Pain is tolerable per patient Peripheral Nerve Block: Regional nerve block not resolved at time of post operative discharge
[2023-10-20] MEDS: oxyCODONE 5 MG TAB PO (15:30)
== END 2023-10-20 16:54 | disposition home or self-care (01) ==
LOC: SUR 08:00
PROVIDERS: PCP Internal Medicine; Visit Provider Student in an Organized Health Care Education/Training Program
PROC: (CPT 29827; principal; 2023-10-20 11:00)
DX: S46.011A Strain of muscle(s) and tendon(s) of the rotator cuff of right shoulder, initial encounter (principal); S46.211A Strain of muscle, fascia and tendon of other parts of biceps, right arm, initial encounter; M75.51 Bursitis of right shoulder; Y93.H1 Activity, digging, shoveling and raking; X50.0XXA Overexertion from strenuous movement or load, initial encounter
CPT/HCPCS: 29806; 29823; 29826; 29827; 76942; C9290; J0131; J0665; J0690; J1100; J1170; J1885; J2001; J2250; J2371; J2405; J2704; J3010

== ENCOUNTER → 2023-11-01 10:06 | Outpatient (BNVA) | payer MEDICARE, SELFPAY | PROVIDERS: PCP Internal Medicine; Referring Provider Internal Medicine; Visit Provider Student in an Organized Health Care Education/Training Program | DX: Z47.89 Encounter for other orthopedic aftercare (principal); M25.611 Stiffness of right shoulder, not elsewhere classified ==

== ENCOUNTER → 2023-12-06 08:14 | Outpatient (BNVA) | payer MEDICARE, SELFPAY | PROVIDERS: PCP Internal Medicine; Referring Provider Internal Medicine; Visit Provider Student in an Organized Health Care Education/Training Program | DX: S46.211D Strain of muscle, fascia and tendon of other parts of biceps, right arm, subsequent encounter (principal); S46.011D Strain of muscle(s) and tendon(s) of the rotator cuff of right shoulder, subsequent encounter; S43.431D Superior glenoid labrum lesion of right shoulder, subsequent encounter; X58.XXXD Exposure to other specified factors, subsequent encounter ==

== ENCOUNTER 2023-12-22 14:43 | Outpatient (CLI) | payer MEDICARE, SELFPAY ==
[2023-12-22 19:32] LABS: PSA, Diagnostic 5.5 ng/mL (<=4.5)
== END 2023-12-22 14:44 | disposition home or self-care (01) ==
LOC: LBO 14:43
PROVIDERS: PCP Family Medicine; Visit Provider Urology
DX: N40.1 Benign prostatic hyperplasia with lower urinary tract symptoms (principal)
CPT/HCPCS: 36415; 84153

== ENCOUNTER → 2024-01-22 14:46 | Outpatient (BNVA) | payer MEDICARE, SELFPAY | PROVIDERS: PCP Family Medicine; Referring Provider Internal Medicine; Visit Provider Psychiatry & Neurology Neurology | DX: M54.16 Radiculopathy, lumbar region (principal); G62.9 Polyneuropathy, unspecified; R29.2 Abnormal reflex | CPT/HCPCS: 99214 ==

== ENCOUNTER → 2024-01-25 14:43 | Outpatient (BNVA) | payer MEDICARE, SELFPAY | PROVIDERS: PCP Family Medicine; Referring Provider Family Medicine | DX: M16.12 Unilateral primary osteoarthritis, left hip (principal) | CPT/HCPCS: 20611; J1010 ==

== ENCOUNTER → 2024-02-08 00:32 | Outpatient (CLI) | payer MEDICARE, SELFPAY ==
--- NOTE | 2024-02-08 11:27 | DI.MRI_ITS ---
Exam(s) MR LUMBAR SPINE WO EXAM: MR LUMBAR SPINE WO CLINICAL HISTORY: L sciatica vs L hip, acute lumbar radiculopathy, M54.16. TECHNIQUE: Multiplanar multisequence MRI of the Lumbar spine was performed. COMPARISON: CT CT renal colic wo from 04/10/2019 CR XR HIP LT COMPLETE AP PELVIS from 09/12/2023 FINDINGS: Bones: The last intervertebral disc space is designated the L5/S1 level for the numbering purpose of this ex amination. The vertebral body heights are well maintained. Alignment: Mild levoscoliosis. Slight spondylolisthesis at L4-5 secondary to facet joint degenerativ e changes. The marrow signal characteristics are unremarkable. Cord: The conus tip ends at the T12 level. It is of normal size and signal intensity. T12-L1: No focal disc herniation is present. No central spinal canal stenosis.No neural foraminal st enosis. L1-2: No focal disc herniation is present. No central spinal canal stenosis.No neural foraminal sten osis. L2-3:Mild disc bulging somewhat eccentric toward the left. Small endplate osteophytes. No focal dis c herniation is present. No central spinal canal stenosis.No neural foraminal stenosis. L3-4: No focal disc herniation is present. No central spinal canal stenosis.No neural foraminal leigh nosis. L4-5:Mild loss of disc height, eccentric toward the right. Small endplate osteophytes.. Minimal dis c bulging. no focal disc herniation is present. Facet degenerative changes cause slight spondyloli sthesis.. No central spinal canal stenosis.Mild bilateral neural foraminal stenosis. L5-S1: Minimal disc bulging. No focal disc herniation is present. No central spinal canal stenosis .No neural foraminal stenosis. The visualized SI joints and sacrum are unremarkable. Soft tissues: The paraspinal soft tissues are unremarkable. IMPRESSION: Mild disc bulging at L2-3 and L4-5. No focal disc herniation. No evidence of significant spinal leigh nosis. Mild bilateral foraminal narrowing at L4-5. DATA REPOSITORY:
== END ==
PROVIDERS: PCP Family Medicine; Visit Provider Psychiatry & Neurology Neurology
DX: M54.16 Radiculopathy, lumbar region (principal)
CPT/HCPCS: 72148

== ENCOUNTER → 2024-02-14 07:54 | Outpatient (BNVA) | payer MEDICARE, SELFPAY | PROVIDERS: PCP Family Medicine; Visit Provider Student in an Organized Health Care Education/Training Program | DX: S46.211D Strain of muscle, fascia and tendon of other parts of biceps, right arm, subsequent encounter (principal); S46.011D Strain of muscle(s) and tendon(s) of the rotator cuff of right shoulder, subsequent encounter; S43.431D Superior glenoid labrum lesion of right shoulder, subsequent encounter; X58.XXXD Exposure to other specified factors, subsequent encounter | CPT/HCPCS: 99213 ==

== ENCOUNTER → 2024-04-24 09:26 | Outpatient (BNVA) | payer MEDICARE, SELFPAY | PROVIDERS: PCP Family Medicine; Referring Provider Family Medicine; Visit Provider Student in an Organized Health Care Education/Training Program | DX: S46.011D Strain of muscle(s) and tendon(s) of the rotator cuff of right shoulder, subsequent encounter (principal); X58.XXXD Exposure to other specified factors, subsequent encounter; R29.898 Other symptoms and signs involving the musculoskeletal system | CPT/HCPCS: 99213 ==

== ENCOUNTER 2024-05-10 00:41 | Outpatient (CLI) | payer MEDICARE, SELFPAY ==
--- NOTE | 2024-05-10 07:45 | DI.MRI_ITS ---
Exam(s) MR UPPER JOINT RT WO EXAM: MR UPPER JOINT RT WO CLINICAL HISTORY: ? rtc tear,traumatic tear.s46.011a TECHNIQUE: Multiplanar multisequence MRI of the shoulder was performed. COMPARISON: CR XR SHOULDER RT COMPLETE 2+V from 09/06/2023 CR XR HIP LT COMPLETE AP PELVIS from 09/12/2023 MR MR UPPER JOINT RT WO from 09/19/2023 FINDINGS: Compared to the prior MRI scan 09/19/2023 there has been interval surgery with 3 AP orientated anchor channels in the humeral head now evident. There is also fixation device in the inferior aspect of t he glenoid fossa. MARROW:There is no evidence of fracture, Hill-Sachs deformity, nor ominous osseous lesions. GLENOHUMERAL JOINT: Small amount of increased joint fluid. Moderate degenerative changes are evident , coding small osteophyte on the inferior articular surface of the humeral head.. No degenerative chavez barticular cysts. No evidence of capsular tear. The inferior glenohumeral ligament is intact. ROTATOR CUFF MECHANISM: AC JOINT/ACROMIUM: Moderate degenerative changes in the AC joint.. There is no evidence of os acromiale. Supraspinatus: There is a full-thickness tear of the supraspinatus tendon-rotator cuff tendon. This is most prominent in the anterior aspect of the supraspinatus. There is fluid in the subacromial bur sa space. Infraspinatus: There is tendinitis-tendinosis signal in the infraspinatus tendon. No full-thickness tear of this structure. No atrophy. Teres Minor: Intact. No evidence of tear nor muscle atrophy. Subscapularis/anterior cuff: There is some tendinitis signal a partial-thickness tearing. BICEPS TENDON: Attenuated within the intertubercular groove. Possibly related to tenodesis site LABRUM: The biceps tendon is not seen attached to the anterosuperior labrum. This most probably post surgical/tenodesis. There is no obvious tear of the superior labrum. Posterior labrum is intact. Inferior labrum appear s intact. Anterior labrum exhibits some signal abnormality although there is evidence of surgical pr ocedure at this level. IMPRESSION: 1. There has been interval surgery since MRI scan of August 2023. 2. There is a full-thickness tear of the supraspinatus tendon as described above. There is tendinosi s signal in the infraspinatus. Also thinning with partial-thickness tearing of the anterior cuff-sub scapularis. 3. Multilevel degenerative changes in the labrum. Previous biceps tenodesis DATA REPOSITORY:
== END 2024-05-10 01:01 ==
LOC: DI 00:41
PROVIDERS: PCP Family Medicine; Visit Provider Student in an Organized Health Care Education/Training Program
DX: S46.011A Strain of muscle(s) and tendon(s) of the rotator cuff of right shoulder, initial encounter (principal); X58.XXXA Exposure to other specified factors, initial encounter
CPT/HCPCS: 73221

== ENCOUNTER 2024-05-10 14:51 | Outpatient (CLI) | payer MEDICARE, SELFPAY ==
[2024-05-10 15:06] LABS: Abs Immature Grans 0.04 10^3/uL (0.0-0.06); Absolute Basophil Count 0.02 10^3/uL (0.0-0.2); Absolute Eosinophil Count 0.06 10^3/uL (0.0-0.7); Absolute Lymphocyte Count 2.25 10^3/uL (1.2-3.4); Absolute Monocyte Count 0.63 10^3/uL (0.1-0.8); Absolute Neutrophil Count 4.38 10^3/uL (1.2-6.7); Basophils % 0.3 %; Eosinophils % 0.8 %; HCT 44.5 % (40.0-50.0); HGB 15.2 g/dL (13.5-17.5); Immature Grans % 0.5 %; Lymphocytes % 30.5 %; MCH 32.5 pg (27.0-33.0); MCHC 34.2 % (32.0-36.0); MCV 95 fL (80-95); MPV 10.8 fL (8.0-11.0); Monocytes % 8.5 %; Neutrophils % 59.4 %; Platelet Count 208 10^3/uL (130-400); RBC 4.68 10^6/uL (4.36-5.78); RDW 12.3 % (11.8-14.1); RDW-SD 43.1 fL; WBC 7.38 10^3/uL (4.4-10.8)
[2024-05-10 15:10] LABS: ESR 1 mm/hr (0-20)
[2024-05-10 15:35] LABS: C-Reactive Protein < 0.50 mg/dL (<or=0.5)
== END 2024-05-10 14:52 | disposition home or self-care (01) ==
LOC: LBO 14:51
PROVIDERS: PCP Family Medicine; Visit Provider Student in an Organized Health Care Education/Training Program
DX: M25.511 Pain in right shoulder (principal); M67.813 Other specified disorders of tendon, right shoulder
CPT/HCPCS: 36415; 85652; 85025; 86140

== ENCOUNTER → 2024-05-15 14:47 | Outpatient (BNVA) | payer MEDICARE, SELFPAY | PROVIDERS: PCP Family Medicine; Referring Provider Family Medicine; Visit Provider Student in an Organized Health Care Education/Training Program | DX: S43.431D Superior glenoid labrum lesion of right shoulder, subsequent encounter (principal); S46.011D Strain of muscle(s) and tendon(s) of the rotator cuff of right shoulder, subsequent encounter; S46.211D Strain of muscle, fascia and tendon of other parts of biceps, right arm, subsequent encounter; X58.XXXA Exposure to other specified factors, initial encounter | CPT/HCPCS: 99213 ==

== ENCOUNTER → 2024-05-16 13:01 | Outpatient (BNVA) | payer MEDICARE, SELFPAY | PROVIDERS: PCP Family Medicine; Referring Provider Family Medicine; Visit Provider Student in an Organized Health Care Education/Training Program | DX: M16.12 Unilateral primary osteoarthritis, left hip (principal) | CPT/HCPCS: 99213 ==

== ENCOUNTER 2024-08-01 04:07 | Outpatient (CLI) | payer MEDICARE, SELFPAY ==
[2024-08-01 10:07] LABS: HCT 46.1 % (40.0-50.0); HGB 15.8 g/dL (13.5-17.5); MCH 32.8 pg (27.0-33.0); MCHC 34.3 % (32.0-36.0); MCV 96 fL (80-95); MPV 10.5 fL (8.0-11.0); Platelet Count 186 10^3/uL (130-400); RBC 4.81 10^6/uL (4.36-5.78); RDW 12.8 % (11.8-14.1); RDW-SD 45.3 fL; WBC 6.02 10^3/uL (4.4-10.8)
[2024-08-01 10:28] LABS: Anion Gap 9.7 mmol/L (3-11); BUN 18 mg/dL (7-18); CO2 26.3 mmol/L (21.0-32.0); CREATININE 0.9 mg/dL (0.70-1.30); Calcium 9.4 mg/dL (8.5-10.1); Chloride 104 mmol/L (98-107); Estimated GFR 92.45 (mL/min/1.73m2); Glucose 105 mg/dL (74-106); Potassium 4.1 mmol/L (3.5-5.1); Sodium 140 mmol/L (136-145)
[2024-08-01 10:56] LABS: Vitamin D 25 Total 37.6 ng/mL (30-100)
== END 2024-08-01 04:08 | disposition home or self-care (01) ==
LOC: LBO 04:07
PROVIDERS: PCP Student in an Organized Health Care Education/Training Program; Visit Provider Student in an Organized Health Care Education/Training Program
DX: K90.9 Intestinal malabsorption, unspecified (principal); Z79.1 Long term (current) use of non-steroidal anti-inflammatories (NSAID); M16.12 Unilateral primary osteoarthritis, left hip; Z01.818 Encounter for other preprocedural examination
CPT/HCPCS: 36415; 80048; 82306; 85027

== ENCOUNTER 2024-08-07 10:54 | Day surgery (SDC) | payer MEDICARE, SELFPAY ==
--- NOTE | 2024-08-06 18:40 | ANES.PREOP_ITS ---
General Info Date of Service Date Performed: 08/07/24 Height: 5 ft 10 in Weight: 83.915 kg Body Mass Index (BMI): 26.5 Surgical Procedure: Operation Date: 08/07/24 14:05 Proposed Procedure Side Surgeon p Hip Total Hip Anterior, ACTIS Left Fabian Vines MD Meds Allergies and Home Medications Allergies Allergy/AdvReac Type Severity Reaction Status Date / Time No Known Allergies Allergy Verified 08/07/24 11:35 Home Medication ?Medication ?Instructions ?Recorded B-complex with vitamin C 1 cap PO DAILY 08/17/23 multivitamin (Multiple Vitamins 1 tab PO DAILY 08/17/23 tablet) meloxicam 15 mg tablet 15 mg PO DAILY 12/06/23 psyllium husk 3.4 gram/5.4 gram 1 tbsp PO DAILY 05/21/24 oral powder (Metamucil) tamsulosin 0.4 mg capsule (Flomax) 0.8 mg PO DAILY 05/21/24 celecoxib 200 mg capsule (Celebrex) 200 mg PO BID PRN pain #60 caps 07/12/24 citalopram 10 mg tablet 10 mg PO DAILY #90 tabs 07/30/24 acetaminophen 500 mg capsule 500 mg PO Q6H PRN 08/01/24 Current Visit Medications: Current Medications Generic Name Dose Route Start Last Admin Trade Name Ravinderq PRN Reason Stop Dose Admin Acetaminophen 1,000 mg 08/07/24 06:00 Acetaminophen 500 Mg Tab PO 08/07/24 23:59 PREOP JUAN Celecoxib 400 mg 08/07/24 06:00 Celecoxib 200 Mg Cap PO 08/07/24 23:59 PREOP JUAN Ringer's Solution 1,000 mls @ 80 mls/hr 08/07/24 06:00 IV 08/07/24 23:59 INFUSION JUAN Cefazolin Sodium/Dextrose 2 gm in 50 mls @ 100 mls/hr 08/07/24 06:00 Ancef Duplex IVPB 08/07/24 23:59 PREOP JUAN Tranexamic Acid/Sodium Chloride 1,000 mg in 100 mls @ 600 mls/hr 08/07/24 06:00 IVPB 08/07/24 23:59 PREOP JUAN IV Miscellaneous Supplies 1 each 08/07/24 06:00 Iv Access IV 08/07/24 23:59 DIRECTED JUAN Sodium Chloride 0 ml 08/07/24 06:00 Normal Saline Flush 10 Ml Syr IV 08/07/24 23:59 PRN PRN Sodium Chloride 0 ml 08/07/24 06:00 Normal Saline 10 Ml Vial IJ 08/07/24 23:59 DIRECTED PRN Sterile Water 0 ml 08/07/24 06:00 Water,Injection,Sterile 10 Ml Vial IJ 08/07/24 23:59 DIRECTED PRN PFSH Active Problems Active Problems: Problem Status Onset Code Chronic hip pain after total replacement of right hip joint Acute M25.551, G89.29, Z96.641 Lower urinary tract symptoms due to benign prostatic hyperplasia Acute N40.1 Lactose intolerance Acute E73.9 Hyperlipidemia Acute E78.5 Screening for malignant neoplasm of prostate Acute Z12.5 Genitourinary symptoms Acute R39.9 Pain in thoracic spine Acute M54.6 Joint pain Acute M25.50 Idiopathic osteoarthritis Acute M19.90 Hearing loss Acute H91.90 Neuropathy Acute G62.9 Erectile dysfunction Acute N52.9 Disorder of adrenal gland Acute E27.9 Tear of right glenoid labrum Acute S43.431A Babinski reflex Acute R29.2 Peripheral neuropathy Acute G62.9 Degenerative joint disease of left hip Chronic M16.12 Traumatic tear of right rotator cuff Acute ~04/2023 S46.011A Tinea pedis Acute B35.3 Plantar verruca Acute B07.0 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 Acute M19.072 Degenerative joint disease, right, foot Acute M19.071 Pain in left ankle Acute M25.572 Pain in right foot Acute M79.671 Pain in joint, foot, left Acute M25.572 Anxiety Chronic F41.9 Arthritis of left hand Chronic M19.042 Lumbar radiculopathy, acute Acute M54.16 Medical History Medical History Hx of smoking Quit in 1981, so not eligible for CT Lung Screening History of psychiatric disorder Screen for colon cancer Cataract Ganglion cyst of finger of left hand Left ring finger Rupture of right proximal biceps tendon Bursitis of right shoulder Hyperplastic colon polyp (~07/2023) Adrenal nodule Kidney stones BPH w urinary obs/LUTS Osteoarthritis Impaired wound healing Surgical History Surgical History H/O arthroscopy Status post total hip replacement, right 2010 S/P vasectomy 1986 S/P appendectomy 1988 S/P cholecystectomy 2007 History of colonoscopy (~07/2023) path sent Tobacco Smoking/Tobacco Use Status: Former Tobacco Use Passive smoking exposure: No Second hand exposure: No Alcohol Alcohol Intake: current Alcohol intake frequency: 0-2 drinks per day Alcohol typ e: hard liquor Substance Use Substance use: Occasionally Substance use type: marijuana Vital Signs and Lab Results Vital Signs Most Recent Vital Signs in EMR: Temp Pulse Resp BP Pulse Ox 36.3 C L 75 16 160/86 H 98 08/07/24 11:29 08/07/24 11:29 08/07/24 11:29 08/07/24 11:29 08/07/24 11:29 Lab Results Blood Type / Crossmatch: No Data to Display Complete Blood Count: White Blood Count 6.02 10^3/uL (4.4-10.8) 08/01/24 09:57 Red Blood Count 4.81 10^6/uL (4.36-5.78) 08/01/24 09:57 Hemoglobin 15.8 g/dL (13.5-17.5) 08/01/24 09:57 Hematocrit 46.1 % (40.0-50.0) 08/01/24 09:57 Platelet Count 186 10^3/uL (130-400) 08/01/24 09:57 Complete Metabolic Panel: Sodium 140 mmol/L (136-145) 08/01/24 09:57 Potassium 4.1 mmol/L (3.5-5.1) 08/01/24 09:57 Chloride 104 mmol/L (98-107) 08/01/24 09:57 Carbon Dioxide 26.3 mmol/L (21.0-32.0) 08/01/24 09:57 BUN 18 mg/dL (7-18) 08/01/24 09:57 Creatinine 0.9 mg/dL (0.70-1.30) 08/01/24 09:57 Est GFR (CKD-EPI 2020) 92.45 (mL/min/1.73m2) 08/01/24 09:57 Calcium 9.4 mg/dL (8.5-10.1) 08/01/24 09:57 Glucose 105 mg/dL (74-106) 08/01/24 09:57 Liver Function Panel: No Data to Display Coagulation Panel: No Data to Display Cardiac Panel: No Data to Display Arterial Blood Gas: No Data to Display Venous Blood Gas: No Data to Display Pancreas Panel: No Data to Display Thyroid Panel: No Data to Display Infectious Disease: No Data to Display Blood Cultures: No Data to Display Toxicology Panel: No Data to Display Imaging and Studies Imaging and Studies Study information below may be from another EMR and interpreted by another provider. Please see original notes in EMR for more complete details. EKG Summary: EKG PATIENT NAME: Holland Garduno UNIT #: [id number] ORDERING PROVIDER: Lane Lyles M.D. PRIMARY CARE PROVIDER: ARLEY LUU MD DATE/TIME OF SERVICE: 06/04/211649 : 1955 PERFORMING LOCATION: ER APPROVED REPORT Exam: Resting ECG Reason for Exam: short of breath Patient Location: E HR:66 bpm ECG Measurements Heart Rate 66 AXIS RI 145 P 40 QRSd 89 QRS 11 QT 425 T31 QTc 447 Conclusion Sinus rhythm...normal P axis, V-rate 60- 99 <Electronically signed by LANE LYLES MD in [place]> E-Sign Date: 06/04/21 E-Sign Time: 1651 ADDENDUM APPROVED REPORT Exam: Resting ECG Reason for Exam: short of breath Patient Location: E HR:66 bpm ECG Measurements Heart Rate 66 AXIS RI 145 P 40 QRSd 89 QRS 11 QT 425 T31 QTc 447 Conclusion Sinus rhythm...normal P axis, V-rate 60- 99 I have reviewed and I agree with the emergency room physician's ECG interpretation. Electronically signed by: <Electronically signed by Susana Polanco M.D. in [place]> 06/08/21 0848 Cosigned by: Other Study Summary:: cervical spine mRI results reviewed and results in chart Anesthesia Assessment and Plan Anesthesia History Personal History: No History of Anesthesia Complications Family History: No Family History of Anesthesia Complications Exercise Tolerance Exercise Tolerance: Metabolic Equivalents>4 Pertinent Negatives Pertinent Negatives: No Symptoms of GERD Cardiac & Pulmonary Exam Cardiac Exam: Normal S1/S2 Heart Sounds Pulmonary Exam: Clear Bilateral Breath Sounds Implantable Cardiac Device Does patient have a Pacemaker or an ICD?: No Airway Exam Known Difficult Airway: No Mallampati Class: 2 Mouth Opening: Normal (> 3cm) Thyromental Distance: Less than 3 cm Neck Range of Motion: Full ROM Neck Circumference: Normal Teeth Condition: Loose or Chipped (pt reports chipped molars; R upper rear molar, L upper rear molar, L front upper tooth) ASA Classification ASA Score: ASA 2 Emergency Case?: No NPO Status NPO Status: NPO Clears >2 hours, Solids >8 hours Anesthesia Plan Resuscitation Status: Full Code Anesthesia Technique: Spinal Anesthesia Airway Planned: Natural Airway Monitors Used: Standard Monitors Preoperative Comments:: 69 yo male for JEISON. Sig PMHx: neuropathy, anxiety, BPH (flomax). former smoker, occ EtOH. EKG: sinus. Previous Anes: - shoulder, glide 3, grade 2, easy mask. - colo, prop, natural airway.
[2024-08-07] VITALS (12 sets, daily range): BP systolic 118–163; BP diastolic 69–91; PULSE 63–82; RESP 12–18; TEMP 36.2–36.4; O2SAT 96–100; BMI 26.5
[2024-08-07] MEDS: Acetaminophen 500 MG TAB 1000 MG PO (11:40)
[2024-08-07] MEDS: Celecoxib 200 MG CAP 400 MG PO (11:40)
[2024-08-07] MEDS: Lactated Ringers 1,000 ML 80 ML IV (12:12)
--- NOTE | 2024-08-07 13:04 | W.PM.DSUDISC ---
Date of service: 08/07/24 Discharge Plan Disposition Patient Disposition: Home Condition: Good Discharge Details Reason For Visit: L THR Attending Provider: Fabian Vines Primary Care Provider: Nelia Georges Home Meds and New Rx's Prescriptions: New acetaminophen 500 mg tablet 1,000 mg PO TID Qty: 90 3RF aspirin 81 mg tablet,delayed release (DR/EC) 81 mg PO BID Qty: 60 0RF celecoxib 200 mg capsule 200 mg PO BID Qty: 60 0RF pantoprazole 40 mg tablet,delayed release (DR/EC) 40 mg PO DAILY Qty: 30 0RF dexamethasone 4 mg tablet 4 mg PO DAILY Qty: 2 0RF oxycodone 5 mg tablet 5 mg PO Q4H MDD 6 tabs PRN (Reason: pain) Qty: 20 0RF Continued tamsulosin [Flomax] 0.4 mg capsule 0.8 mg PO DAILY B-complex with vitamin C Capsule 1 cap PO DAILY multivitamin [Multiple Vitamins] Tablet 1 tab PO DAILY Metamucil 3.4 gram/5.4 gram powder 1 tbsp PO DAILY Rx Instructions: mix into at least 8 oz of water or juice before administering citalopram 10 mg tablet 10 mg PO DAILY Qty: 90 3RF Rx Instructions: Continue Discontinued acetaminophen 500 mg capsule 500 mg PO Q6H PRN meloxicam 15 mg tablet 15 mg PO DAILY celecoxib [Celebrex] 200 mg capsule 200 mg PO BID PRN (Reason: pain) Qty: 60 0RF Discharge Instructions Additional Instructions: Total Hip Discharge Instructions Activity: The most important activity is to walk. You should try to take short walks a few times a day. You have no restrictions on movement or positioning, but do not try to force what you do. You will find some stiffness and weakness with hip flexion (lifting your knee). Do not try to strengthen this too early, continue to practice walking and stairs and this will come. - Outpatient physical therapy can be helpful to help return you to a normal gait and improve your flexibility and strength. This can start around 2 weeks. For some patients, it?s not necessary. Usually this is determined at the time of discharge or at the first post-operative visit. - You should wear the SATYA hose on both legs for 2 weeks. Dressing: Keep the surgical dressing in place for at least one week. After the first week it may be removed and replace with light gauze and tape or nothing. It may get wet after 3 days but avoid soaking the dressing. If it gets wet, just lightly pat dry. It is important to always keep some gauze between skin folds, especially when you are sitting. Spend some time with the wound exposed when you are lying flat as the incision does wrinkle onto itself. Medications: - You should take Tylenol and an anti-inflammatory Celebrex as your primary pain control medications. If the Celebrex is too expensive or not covered, please call the office for another alternative (Advil/Ibuprofen or Naproxen/Aleve). - You have been prescribed a stronger pain medication Oxycodone for breakthrough pain, take as needed as prescribed. - You have also been prescribed a stomach acid reduction agent Pantoprozole to help reduce stomach acid and reflux. - You have also been prescribed Decadron to help with post-operative nausea and pain. You will take this for two days starting tomorrow. - You will be taking Aspirin 81mg twice a day for DVT prevention unless instructed otherwise. - If you have constipation you should take Colace or Miralax (both [id number]). It takes most people 3-4 days to have a bowel movement. Follow-up: 2 weeks If you have any acute concerns or questions, please do not hesitate to contact the office at [phone]. You may contact Dr. Vines with any questions after hours through the hospital at [phone] or on his cell phone at [phone]. Referrals: Fabian Vnies MD [ [facility] STAFF PHYSICIAN] - Equipment/Supplies: Walker Activity:: Activity as Tolerated Shower/Bathe:: 72 hours Diet:: As Tolerated Discharge Orders Discharge Orders: Discharge Order (Routine); Ordered 08/07/24 Ordered By: Aden Beavers DS: Diagnosis Discharge Diagnosis (1) Degenerative joint disease of left hip: Status: Resolved
[2024-08-07] MEDS: TRANEXAMIC ACID/SOD. CHL. 1,000 MG/100 ML BAG 600 MG IVPB (13:38)
[2024-08-07] MEDS: ceFAZolin 2 GM/50 ML BAG IVPB (13:41)
--- NOTE | 2024-08-07 14:43 | W.PM.OP ---
Operative Note Operative Note PRE-OP DIAGNOSIS: Left Hip Osteoarthritis POST-OP DIAGNOSIS: same PROCEDURE: Left Anterior Total Hip Arthroplasty with Intraoperative Navigation SURGEON: Fabian Vines EGG BREAKING MACHINE OPERATOR: Aden Beavers ANESTHESIA TYPE: Spinal Refer to Anesthesia Record ESTIMATED BLOOD LOSS: 200 PATHOLOGY: none sent TOURNIQUET TIME: 0 COMPLICATIONS: None Patient was transported to: PACU Patient's condition: stable Implants: 1. Depuy Newton Acetabular Component, 50mm 2. Depuy Acetabular Liner, [id number] 3. Depuy Actis Standard Collared Femoral Stem, Size 4 4. Depuy Altrx Ceramic Femoral Head, Size 32+9mm Indications: I have seen Holland in clinic for symptoms of hip arthritis, confirmed with radiographic findings. He has exhausted nonoperative methods and was having significant limitations in daily function and desired better function and less pain. I discussed the technical details of a hip replacement. I explained the risks of the procedure to include, but not limited to, bleeding, infection, pain, stiffness, fracture, damage to nerves and vessels, damage to muscles and tendons, loosening, instability, leg length inequality, need for repeat procedure, blood clot and cardiopulmonary demise. Despite these risks, Holland elected to proceed. Findings: There was significant signs of arthritis throughout the hip. Procedure Description: Holland was greeted in the preoperative holding area where the correct side was identified and marked. The consent was reviewed with the patient and signed. The history and physical was updated. All questions were answered. He was taken back to the operating room. A spinal anesthestic was then administered. The feet were wrapped with cast padding and Coban and then placed into the boot liners and then into the boots. Care was taken to protect the skin and make sure the heels were fully down and the boots were stable. The patient was then positioned onto the HANA table. Both legs were held in a neutral position. SCDs were applied. The patient was then slid down onto a peroneal post. Prophylactic antibiotics in the form of Cefazolin were administered. 1g of Tranxemic Acid was given intravenously within 30 minutes of incision. The left leg was then prepped with Chloraprep and draped in a standard fashion. A second prep with Chloraprep was performed prior to placement of a shower-curtain type drape with Iodine impregnated skin protection. A timeout to confirm correct identity, side and site, procedure, allergies, anesthesia, and medical concerns was performed. An obliquely oriented incision was made starting lateral to the ASIS and running distal over the Tensor Fascia Mona (TFL) muscle belly toward the fibular head, approximately 10cm. The skin and soft tissue was dissected sharply, through Parish?s fascia, and to the fascia of the TFL. With the fascia and superior border of the IT band identified, the fascia was incised with a new knife just above any perforators from the IT band. The TFL muscle belly was bluntly dissected away from the fascia and moved laterally. The fat between TFL and rectus was identified to ensure the dissection was not within the TFL. Blunt dissection created space between abductors and the capsule and retractor was placed over the lateral femoral neck. The fibers of the rectus femoris tendon were identified and these were freed from the anterior capsule. A second cobra retractor was placed around the medial femoral neck. The TFL was further retracted laterally to show the deep fascia. Careful dissection through this layer identified three main crossing vessels of the lateral femoral circumflex. These were cauterized in multiple locations and then cut without any noticeable bleeding. The TFL was further released bluntly from the deep fascia to expose anterior hip capsule and fat The Kaleb orthopaedic retractor was then placed beneath the TFL and against sartorius and medial soft tissues to protect and retract the soft tissues. A T-capsulotomy was then performed starting at the superior lateral acetabulum and moving distally to the intertrochanteric ridge. These capsular flaps were tagged with a No. 1 Ethibond and elevated from within. The capsular flaps were released to the shoulder of the lateral neck and to the lesser trochanter to give excellent visualization of the proximal femur. A neck osteotomy was performed using an oscillating saw based on preoperative templates. This cut started in the shoulder and of the lateral neck and exited medially. The saw was at all times directed medially to avoid injury to the greater trochanter. Gross traction was applied to the leg and the osteotomy opened. The femoral head was removed with a corkscrew, making sure to protect the TFL on its exit. Traction was released after head removal. This was measured on the back table to determine the starting reamer size. Portions of the rectus obscuring visualization were minimally elevated off the superior acetabulum. An anterior retractor was placed over the anterior wall between capsule and labrum and attached to the Gripper retraction system. The femur was rotated to 90 degrees and medial capsule was fully released until the lesser trochanter was palpable and visible; the femur was returned to 30 degrees. A posterior retractor was placed similarly between capsule and labrum. This provided excellent visualization. The contents of the cotyloid fossa were removed with electrocautery and the labrum was removed with a knife. There was a notable floor osteophyte. There was significant chondromalacia of the superior acetabulum. Acetabular reaming began with a 46mm reamer. This first reaming was directed anterior to posterior and medial to get down to the true floor. This was inspected and reamed until the true floor was reached. The anterior retractor was then released and entry and exit was provided by traction on the capsular flaps. I then reamed sequentially up to a 50mm reamer where good fit was obtained. The larger reamers were oriented based on anatomical reference of the anterior and lateral tellez to ensure proper abduction and anteversion. Positioning and size was confirmed with the fluoroscopy. A 50mm Depuy Newton acetabular component was selected. The acetabulum was reamed around the periphery with the selected acetabular size to prevent a rim fit. The deep tissues were irrigated. The acetabular component was then impacted in a position of about 40-45 degrees of abduction and 15-20 degrees of anteversion, using the patient?s anatomy as the ultimate landmark. Fluoroscopy was used to confirm this. There was excellent gas roller operator of the acetabular component and the inserting handle was removed. The acetabular liner, Depuy [id number] polyethylene liner, was inserted and lined up with the tines of the acetabular component. There was no soft tissue interposition. The liner was then impacted into position and confirmed to be well-seated. A portion of the piper-articular cocktail was then injected around the acetabulum into the capsule and periosteum. This cocktail consisted of 123mg of Ropivacaine, 0.25mg of Epinephrine, 0.04mg of Clonidine, and 15mg of Ketorolac, diluted to 50cc. The leg was rotated to 120 degrees. Any remaining medial capsule was released until the lesser trochanter was easily palpable. A retractor was placed medially. The lateral capsule was further released into the shoulder to allow access to the greater trochanter. A Augustine retractor was placed over the greater trochanter which allowed the trochanter to flip in front of the capsule for excellent exposure. The leg was brought down into maximal extension and 20 degrees of adduction while ensuring there was no impingement on the acetabulum. Any remnant capsule within the trochanter was released. Piriformis and obturator externis were identified and protected. There was excellent access to the proximal femur. The lateral neck remnant was removed with a rongeur. A blunt canal probe was used to identify the canal and trajectory for later broaching. A box osteotome initiated the broach course. A small curved rasp and a curved curette were used to work laterally. Broaching then began with a starter Actis broach. This was inserted manually around the trochanter and into the canal before mallet blows. The broach was seated to a few millimeters below the cut level based on the neck cut and the preoperative template. Sequential broaching was continued with the [place] pneumatic broaching device until a tight fit was obtained with good rotational control of the femur. A trial standard neck was inserted along with a +9 trial head. The leg was brought out of extension and adduction and then reduced with traction and internal rotation. The leg was stable anteriorly in a position of 30 degrees of extension and 90 degrees of external rotation. Fluoroscopy was used to ensure there was no fracture and the stem was seated well. Leg lengths were checked with an AP pelvis and pelvic reference points. C$ cMoney navigation system was used to confirm appropriate positioning and leg length and offset. Once content with the desired offset and leg lengths, the leg was brought back into extension, external rotation and adduction. The periosteum and surrounding tissue was injected with remaining portion of the piper-articular cocktail. The proximal femur was irrigated as well as the deep tissues. The Depuy Actis standard collared stem, size 4, was then manually inserted into the proximal femur making sure to control rotation. It was then malleted into position with light blows, giving breaks to allow bone expansion and decrease risk of fracture. The selected Depuy Altrx Ceramic Head, size 32+9mm, was then placed onto the clean and dry trunnion and secured with impaction onto the tapered fit. The leg was brought back out of extension and adduction and reduced with traction and internal rotation. Stability was confirmed with no shuck at 90 degrees of external rotation and 30 degrees of extension. No impingement through range of motion arc. Final x-ray images were obtained with fluoroscopy to confirm adequate positioning and no intraoperative fracture. The deep tissues were thoroughly irrigated with Surgiphor, betadine solution. This was allowed to sit in the wound for 3 minutes before being thoroughly irrigated out with normal saline. The capsule was then reapproximated with the previously placed Ethibond sutures. The TFL fascia was finally closed with a No. 2 Stratafix, barbed suture. Deep tissues were then reapproximated with 0 Vicryl and a running 2-0 Vicryl. The skin was closed with a running 4-0 Monocryl in a subcuticular fashion. This was reinforced with skin glue. A Mepilex silver dressing was applied. At the end of the case, all counts were correct. Holland was transferred to the hospital bed without difficulty and suffering no apparent complication. Holland has a good prognosis. Physical therapy will start today and without restrictions, weight-bearing as tolerated. Aspirin 81mg BID will be used for DVT prophylaxis. Date of Procedure: 08/07/24
--- NOTE | 2024-08-07 14:53 | DI.RAD_ITS ---
Exam(s) XR HIP LT IN OR EXAM: XR HIP LT IN OR CLINICAL HISTORY: LEFT HIP OA TECHNIQUE: 2D and realtime digital imaging was performed. CONTRAST MATERIAL: Refer to procedure report. COMPARISON: CR XR HIP LT COMPLETE AP PELVIS from 09/12/2023 FINDINGS: Fluoroscopy was provided for Dr. Vines during the performance of a left total hip arthroplasty. Please refer to the procedure report for complete details. Ka,r=4.2 mGy IMPRESSION: RADIATION DOSE DELIVERED: 0.0 1847.4 0
--- NOTE | 2024-08-07 15:02 | W.ANESPOSTOP ---
Postoperative Evaluation Date, Time and Location Date Performed: 08/07/24 Time Performed: 15:02 Patient Location: PACU Vital Signs Most Recent Imported Vital Signs: Most Recent Vital Signs Temp Pulse Resp BP Pulse Ox 36.4 C L 75 16 160/86 H 98 08/07/24 14:54 08/07/24 11:29 08/07/24 11:29 08/07/24 11:29 08/07/24 11:29 Pain Score Most Recent Pain Score: Most Recent Pain Score Pain Level 0 08/07/24 14:54 Assessment Mental Status: Awake (Alert & Oriented to Patient Baseline) Airway and Respiratory Function: Patent airway with normal (patient baseline) respiratory exam Cardiovascular Function: Hemodynamically Stable Hydration Status: Adequately Hydrated Nausea & Vomiting: No Nausea or Vomiting Pain: Pain is tolerable per patient (spinal still waning) Peripheral Nerve Block: Regional nerve block not resolved at time of post operative discharge
[2024-08-07] MEDS: oxyCODONE 5 MG TAB PO (15:55)
--- NOTE | 2024-08-07 16:21 | IN_ITS ---
PT Notes Visit Reasons: L THR Physical Therapy Day Surgery Initial Evaluation Date: 08/07/2024 Referring Doctor: GEOFF Edmonds PT Orders: PT CONSULT: S/P Ortho Surgery Precautions: WBAT on the left LE with AD. Patient Profile/Admitting Diagnosis: Holland is a 69-year-old male with degenerative joint disease of the left hip and status post left anterior total hip arthroplasty on postoperative day 0 PMHX: Medical History (Updated 07/12/24 @ 15:59 by Nelia Georges DO) Hx of smoking Quit in 1981, so not eligible for CT Lung Screening History of psychiatric disorder Screen for colon cancer Cataract Ganglion cyst of finger of left hand Left ring finger Rupture of right proximal biceps tendon Bursitis of right shoulder Hyperplastic colon polyp (~07/2023) Adrenal nodule Kidney stones BPH w urinary obs/LUTS Osteoarthritis Impaired wound healing Surgical History (Updated 05/09/24 @ 15:24 by Tsering Richards) H/O arthroscopy Status post total hip replacement, right 2009 S/P vasectomy 1986 S/P appendectomy 1988 S/P cholecystectomy 2006 History of colonoscopy (~07/2023) path sent Social History/Home Situation: Lives with in a private home with low threshold to enter. Independent indoor and outdoor ambulator using single-point cane. Semiretired doing a desk job. Equipment Owned/DME: [facility] Subjective: Complained of pain at rest of up to 8/10 during low intensity seated exercise that subsided to 4?5/10 with ambulation performance. Nurse Ewelina gave 5 mg of Oxycodone 25 minutes before Pt session. Objective: General Observation: Mepilex Ag over surgical incision. TEDS to be legs. Delfin present in room throughout session. Mental Status: A and o x 4 Pain: As above ROM: Right Lower Extremity: Hip flexion WFL. Hip abduction WFL. Knee flexion WFL. Ankle dorsiflexion WFL. Ankle plantarflexion WFL. Left Lower Extremity: Hip flexion unable at this time due to pain. Hip abduction WFL. Knee flexion 20 degrees to 110 degrees. Ankle dorsiflexion WFL. Ankle plantarflexion WFL. Strength: Right Lower Extremity: Hip flexors 5/5. Hip abductors 5/5. Knee flexors 5/5. Knee extensors 5/5. Ankle dorsiflexors 5/5. Ankle plantarflexors 5/5. Left Lower Extremity:Hip flexors 3-/5. Hip abductors 4-/5. Knee flexors 3-/5. Knee extensors 3-/5. Ankle dorsiflexors 5/5. Ankle plantarflexors 5/5. Sensation: Intact as to pain and light pressure in bilateral lower extremities Bed Mobility/Transfers: Minimal cueing provided for use of B hands as needed for support, movement sequence, AD management, and posture to reduce fall risk and minimize pain report Sit to stand stand by assist with FWW Stand to sit stand by assist with FWW Bed to chair stand by assist with FWW Gait: Facilitated safe and correct performance of level surface ambulation covering a distance of 300 feet using front wheeled walker with reciprocal swing through heel-toe gait pattern with standby assist, pain report subsided to 4-5/10 with activity. Minimal verbal cueing provided for limb advancement, AD management, and posture to minimize pain reported reduce fall risk. Balance: Static Sitting: Normal Dynamic Sitting: Normal Static Standing: Fair Dynamic Standing: Fair Special Tests: Mobility Limitations Standardized Measure [facility] 6 clicks Basic Mobility Inpatient Short Form: Raw Score: 23 CMS Score: 11% deficit Informed Consent/Education: Patient instructed in purpose of PT consult. Packet containing JEISON exercise protocol has been given to patient. Education and training on initial set of exercises that can be done at home have been completed with patient. Trained patient with correct performance of exercises below to maximize motor control, joint flexibility, soft tissue extensibility of the L hip musculature to facilitate return to independent functional mobility performance. Access Code: [email or web address] URL: [email or web address] Date: 08/07/2024 Prepared by: Kelly Duran Exercises - Gluteal Sets - 1 x daily - 7 x weekly - 1 sets - 10 reps - 5 hold - Supine Heel Slide - 1 x daily - 7 x weekly - 1 sets - 10 reps - 5 hold - Supine Ankle Pumps - 1 x daily - 7 x weekly - 1 sets - 10 reps - 5 hold - Seated March - 1 x daily - 7 x weekly - 1 sets - 10 reps - 5 hold - Seated Long Arc Quad - 1 x daily - 7 x weekly - 1 sets - 10 reps - 5 hold Assessment: Patient requires use of a front wheeled walker for all mobility ADL performance to maximize independence and reduce fall risk. Patient presents with clinical signs and symptoms consistent with current/admitting diagnoses that have resulted to mobility limitations, gait instability, generalized weakness, and impairment of motor control as demonstrated by the following impairment level findings: 1. Decreased strength to L hip major muscle groups 2. Impaired standing balance 3. Limitation of joint range of motion in L hip 4. Pain in L hip at 6-7/10 Impairments are contributing to the following functional limitations: 1. Inability to safely ambulate without assistive device 2. Increase completion time for mobility ADL performance 3. Increased fall risk Patient is assessed as a [id number] moderate complexity based on the following: History: 69-year-old male with impairment level findings, functional limit ations, and past medical history as indicated above Examination: Demonstrable impairment in strength, balance, and mobility level with underlying impairments and functional limitations as documented above Presentation: Evolving Decision Makin moderate complexity Goals: N/A. PT evaluation and 1-2 treatment sessions only for functional mobility training using recommended AD and for HEP instruction. Plan of Care/Treatment Plan: N/A. PT evaluation and 1-2 treatment session only for functional mobility training using recommended AD and for HEP instruction. DISCHARGE RECOMMENDATIONS: Home when medically cleared by orthopedic surgeon. Recommend outpatient PT services in order to optimize functional mobility outcomes and facilitate return to independent community ambulation without an assistive device. TREATMENT CODE/TIME: 25008 x 20 minutes for 1 unit, 71282 x 13 minutes for 1 unit (16: 21?16: 54). Thank you for the opportunity to participate in the care of this patient. Kelly Duran PT, DPT, CLT [facility] [place], [place]
== END 2024-08-07 17:05 | disposition home or self-care (01) ==
PROVIDERS: PCP Student in an Organized Health Care Education/Training Program; Visit Provider Student in an Organized Health Care Education/Training Program
PROC: (CPT 27130; principal; 2024-08-07 13:45)
DX: M16.12 Unilateral primary osteoarthritis, left hip (principal); E78.5 Hyperlipidemia, unspecified; N20.0 Calculus of kidney; M54.16 Radiculopathy, lumbar region
CPT/HCPCS: 20985; 27130; 97162; 97530; 73501; C1776; J0690; J1100; J2250; J2401; J2405; J2704

== ENCOUNTER 2024-08-22 11:28 | Outpatient (CLI) | payer MEDICARE, SELFPAY ==
--- NOTE | 2024-08-22 09:45 | DI.RAD_ITS ---
Exam(s) XR HIP LT COMPLETE AP PELVIS EXAM: XR HIP LT COMPLETE AP PELVIS CLINICAL HISTORY: 1ST POST OP S/P L JEISON. TECHNIQUE: 2D digital imaging was performed. COMPARISON: No exams were available for comparison FINDINGS: 3 views There are bilateral hip prostheses. Right side remain stable. With respect to the more recently placed left hip prosthesis (08/07/2024), is components exhibit norm al position alignment with no fracture or loosening evident. No radiographic evidence of osteomyelit is. IMPRESSION: Stable satisfactory appearance. DATA REPOSITORY: RADIATION DOSE DELIVERED:
== END 2024-08-22 11:29 | disposition home or self-care (01) ==
LOC: DIORS 11:28
PROVIDERS: PCP Student in an Organized Health Care Education/Training Program; Visit Provider Student in an Organized Health Care Education/Training Program
DX: Z96.642 Presence of left artificial hip joint (principal); Z47.1 Aftercare following joint replacement surgery
CPT/HCPCS: 99024; 73502

== ENCOUNTER → 2024-09-11 09:00 | Outpatient (BNVA) | payer MEDICARE, SELFPAY | PROVIDERS: PCP Student in an Organized Health Care Education/Training Program; Visit Provider Student in an Organized Health Care Education/Training Program | DX: S43.431A Superior glenoid labrum lesion of right shoulder, initial encounter (principal); S46.011A Strain of muscle(s) and tendon(s) of the rotator cuff of right shoulder, initial encounter; X58.XXXA Exposure to other specified factors, initial encounter | CPT/HCPCS: 99213 ==

== ENCOUNTER → 2024-09-19 09:49 | Outpatient (BNVA) | payer MEDICARE, SELFPAY | PROVIDERS: PCP Student in an Organized Health Care Education/Training Program; Visit Provider Student in an Organized Health Care Education/Training Program | DX: Z47.1 Aftercare following joint replacement surgery (principal); Z96.642 Presence of left artificial hip joint | CPT/HCPCS: 99024 ==

== ENCOUNTER 2024-12-12 09:13 | Outpatient (CLI) | payer MEDICARE, SELFPAY ==
[2024-12-12 19:20] LABS: PSA, Diagnostic 5.2 ng/mL (<=4.5)
== END 2024-12-12 09:14 | disposition home or self-care (01) ==
LOC: LBO 09:13
PROVIDERS: PCP Student in an Organized Health Care Education/Training Program; Visit Provider Urology
DX: Z80.42 Family history of malignant neoplasm of prostate (principal)
CPT/HCPCS: 36415; 84153

== ENCOUNTER 2025-02-20 01:04 | Outpatient (CLI) | payer MEDICARE, SELFPAY ==
--- NOTE | 2025-02-20 08:00 | DI.RAD_ITS ---
Exam(s) XR FOOT LT COMPLETE EXAM: XR FOOT LT COMPLETE CLINICAL HISTORY: Left foot pain,m79.672. TECHNIQUE: 2D digital imaging was performed of the left foot. Three images were obtained. AP, oblique and lateral views were obtained. COMPARISON: CR XR FOOT LT COMPLETE from 05/08/2023 FINDINGS: BONES: No acute fracture is present. No bony destructive lesion is seen. There is a small enthesophyte at the posterior calcaneus. JOINTS: No dislocation present. Mild degenerative changes are seen at the 1st MTP joint. Moderate to severe degenerative changes are again seen at the interphalangeal joints of the toes and the 2nd and 3rd TMT joints. They appear stable. SOFT TISSUE: Normal. IMPRESSION: Stable osteoarthritis of the left foot. DATA REPOSITORY: RADIATION DOSE DELIVERED:
--- NOTE | 2025-02-20 08:00 | DI.RAD_ITS ---
Exam(s) XR FOOT RT COMPLETE EXAM: XR FOOT RT COMPLETE CLINICAL HISTORY: Right foot pain,m79.671. TECHNIQUE: 2D digital imaging was performed of the right foot. Three images were obtained. AP, oblique and lateral views were obtained. COMPARISON: CR XR FOOT RT COMPLETE from 05/08/2023 FINDINGS: BONES: No acute fracture is present. No bony destructive lesion is seen. There is an enthesophyte at the posterior calcaneus. JOINTS: No dislocation present. There is a hallux valgus deformity again seen. There are marked degenerative changes seen with marked narrowing and osteophytes at the 1st MTP joint. There also moderate degenerative changes seen in the interphalangeal joints of the toes. There has been progression of the degenerative changes seen at the 2nd and 3rd TMT joints since the prior examination. SOFT TISSUE: Normal. IMPRESSION: Progressive osteoarthritis of the right foot. DATA REPOSITORY: RADIATION DOSE DELIVERED:
== END 2025-02-20 01:24 ==
PROVIDERS: Visit Provider Podiatrist
DX: M25.572 Pain in left ankle and joints of left foot (principal); M25.571 Pain in right ankle and joints of right foot; M19.071 Primary osteoarthritis, right ankle and foot; M19.072 Primary osteoarthritis, left ankle and foot; G62.9 Polyneuropathy, unspecified; B07.0 Plantar wart; B35.3 Tinea pedis; M20.21 Hallux rigidus, right foot
CPT/HCPCS: 20600; J0702; J1100; 73630

== ENCOUNTER → 2025-03-26 14:45 | Outpatient (BNVA) | payer MEDICARE, SELFPAY | PROVIDERS: PCP Nurse Practitioner; Referring Provider Student in an Organized Health Care Education/Training Program; Visit Provider Podiatrist | DX: M19.071 Primary osteoarthritis, right ankle and foot (principal); M19.072 Primary osteoarthritis, left ankle and foot; M79.671 Pain in right foot; M79.672 Pain in left foot; M20.21 Hallux rigidus, right foot; G62.9 Polyneuropathy, unspecified; B07.0 Plantar wart; B35.3 Tinea pedis | CPT/HCPCS: 20600; J0702; J1100 ==